=== PATIENT | female | born 1955 | race Caucasian/White ===

== ENCOUNTER → 2018-02-09 07:28 | Outpatient (CLI) | payer OTHER, SELFPAY ==
--- NOTE | 2018-02-09 07:29 | DI.MRI.S_ITS ---
PROCEDURE: MR KNEE LT WO CON INDICATIONS: 62 year-old female with left knee pain after injury 2 weeks ago. TECHNIQUE: Noncontrast sagittal PD fast spin echo and T2 fast spin echo with fat saturation, sagittal 3-D FLASH with fat saturation; coronal T1 spin echo and PD fast spin echo with fat saturation, and axial PD fast spin echo with fat saturation through the knee. COMPARISON: None. FINDINGS: Image quality: Excellent. Menisci: There is irregular signal within the medial meniscal body and posterior horn on sagittal image 8, coronal image 19, and axial image 20, consistent with complex tear with a vertical flap tear component on coronal image 18, a nondisplaced horizontal tear involves the lateral meniscal body as well. Meniscal root ligaments appear intact. Cruciate ligaments: The anterior and posterior cruciate ligaments appear intact. Medial structures: The medial collateral ligament appears intact, with superficial interstitial edema. The posterior oblique ligament, semimembranosus tendon insertions, oblique popliteal ligament, and meniscocapsular junction appear intact. Visualized portions of the pes anserinus tendons appear normal. There is bursal fluid between the superficial and deep layers of the medial collateral ligament, protruding anteriorly on axial image 19. Lateral structures: The lateral collateral ligament, long and short heads of the biceps femoris tendon appear intact. The popliteus tendon appears normal; the popliteofibular ligament appears intact. The posterosuperior and anteroinferior popliteomeniscal fascicles appear intact. The arcuate ligament appears intact, just anterior to the lateral inferior geniculate artery. Iliotibial band appears normal. Anterior structures: The quadriceps and patellar tendons appear intact. Patellar alignment is normal. No femoral trochlear dysplasia or ventral trochlear prominence. No edema in the infrapatellar fat pad. Bones and cartilage: 1.2 x 1.2 cm nondepressed subchondral insufficiency fracture involves the medial tibial plateau, with surrounding bone marrow edema. On coronal image 18, an additional 7 x 6 mm subchondral insufficiency fracture involves the weightbearing portion of the medial femoral condyle, with surrounding bone marrow edema. There is regional full-thickness cartilage loss involving the weightbearing portion of the medial femoral condyle. Lateral femorotibial compartment cartilage demonstrates normal thickness and signal, except for a small partial-thickness cartilage fissure on coronal image 20. There is localized full-thickness cartilage loss involving the patellar apex. Joint space: There is moderate knee joint effusion, and moderate unruptured Coleman's cyst. No intra-articular bodies. IMPRESSION: 1. Nondepressed subchondral insufficiency fractures of the medial femoral condyle and medial tibial plateau. 2. Complex tear of the medial meniscal body and posterior horn, with vertical flap tear component. 3. Nondisplaced horizontal tear of the lateral meniscal body. 4. Medial collateral ligament bursitis, as well as findings suggestive of grade 1 sprain. 5. Regional full-thickness degenerative chondrosis of the medial femoral condyle. Localized full-thickness chondrosis of the patellar apex. 6. Moderate knee joint effusion and moderate unruptured Coleman's cyst. Dictated by: Pedro Luis Jackson M.D. on 02/09/2018 at 8:40 Approved by: Pedro Luis Jackson M.D. on 02/09/2018 at 8:53
== END ==
PROVIDERS: Family Provider Family Medicine; PCP Family Medicine; Visit Provider Family Medicine
DX: M25.562 Pain in left knee (principal); M84.452A Pathological fracture, left femur, initial encounter for fracture; M84.462A Pathological fracture, left tibia, initial encounter for fracture; S83.242A Other tear of medial meniscus, current injury, left knee, initial encounter; S83.282A Other tear of lateral meniscus, current injury, left knee, initial encounter; M25.462 Effusion, left knee
CPT/HCPCS: 73721

== ENCOUNTER → 2018-05-24 07:03 | Outpatient (CLI) | payer MEDICARE, OTHER, SELFPAY ==
[2018-05-24 08:20] LABS: Add Manual Diff / Slide Review NO; Basophils Percent Auto 0.8 % (0-2); Eosinophils Percent Auto 2.9 % (2-4); Hematocrit 40.2 % (36-46); Hemoglobin 13.6 g/dL (12.0-16.0); Lymphocytes Percent Auto 9.6 % (25-40); Mean Corpuscular Hemoglobin 31.6 PG (26-34); Mean Corpuscular Volume 93.1 fL (80-100); Monocytes Percent Auto 8.2 % (3-14); Neutrophils Absolute Auto 4700 /uL (3000-5900); Neutrophils Percent Auto 78.5 % (50-75); Platelet Count 246 X10^3/uL (150-400); Red Blood Cell Count 4.31 X10^6/uL (4.0-5.2); Red Cell Distribution Width 12.8 % (11.6-14.8); White Blood Cell Count 5.9 X10^3/uL (4.5-11.0)
[2018-05-24 08:51] LABS: Alanine Aminotransferase 25 IU/L (9-52); Albumin 4.3 g/dL (3.5-5.0); Albumin Globulin Ratio 1.2 (1.0-2.8); Alkaline Phosphatase 64 U/L (38-126); Aspartate Aminotransferase 31 IU/L (14-36); Bilirubin Total 0.6 mg/dL (0.2-1.3); Blood Urea Nitrogen 18 mg/dL (7-17); Calcium 9.3 mg/dL (8.4-10.2); Carbon Dioxide 31 mmol/L (22-32); Chloride 100 mmol/L (98-107); Cholesterol 184 mg/dL (140-199); Estimated Glomerular Filt Rate > 60.0 mL/min (>60); Globulin 3.7 g/dL (1.7-4.1); Glucose 84 mg/dL (80-110); HDL Cholesterol 72 mg/dL (40-60); HEMOLYSIS < 15 (0-50); LDL Cholesterol Calculated 97 mg/dL (<100); Potassium 4.1 mmol/L (3.4-5.1); Sodium 142 mmol/L (137-145); Triglycerides 76 mg/dL (35-150)
== END ==
PROVIDERS: Family Provider Family Medicine; PCP Family Medicine; Visit Provider Physician Assistant
DX: L40.0 Psoriasis vulgaris (principal); E78.5 Hyperlipidemia, unspecified; I10 Essential (primary) hypertension
CPT/HCPCS: 36415; 80053; 80061; 84443; 85025

== ENCOUNTER → 2018-07-12 09:28 | Outpatient (CLI) | payer MEDICARE, OTHER, SELFPAY ==
--- NOTE | 2018-07-12 | DI.MG.S_ITS ---
BILATERAL DIGITAL SCREENING MAMMOGRAM 3D/2D WITH CAD: 07/12/2018 CLINICAL: Routine screening. Comparison is made to exams dated: 06/25/2017 mammogram, 06/24/2016 mammogram, and 12/23/2015 mammogram - [facility]. There are scattered fibroglandular elements in both breasts. Current study was also evaluated with a Computer Aided Detection (CAD) system. There is a benign biopsy clip in the right breast. No significant masses, calcifications, or other findings are seen in either breast. There has been no significant interval change. IMPRESSION: NEGATIVE There is no mammographic evidence of malignancy. A 1 year screening mammogram is recommended. NOTE: For mammograms, a report in lay terms will be sent to the patient. Approximately 15% of breast malignancies will not be visualized mammographically. In the management of a palpable breast mass, a negative mammogram must not discourage biopsy of a clinically suspicious lesion. Electronically Signed By: Marjorie ward/cortez:07/13/2018 12:07:50 letter sent: Normal Exam ACR BI-RADS Category 1: Negative 3341F
== END ==
PROVIDERS: Family Provider Family Medicine; PCP Family Medicine; Visit Provider Family Medicine
DX: Z12.31 Encounter for screening mammogram for malignant neoplasm of breast (principal)
CPT/HCPCS: 77063; 77067

== ENCOUNTER → 2019-07-14 10:48 | Outpatient (CLI) | payer MEDICARE, OTHER, SELFPAY ==
--- NOTE | 2019-07-14 | DI.MG.S_ITS ---
BILATERAL DIGITAL SCREENING MAMMOGRAM 3D/2D WITH CAD: 07/14/2019 CLINICAL: Routine screening. Comparison is made to exams dated: 07/12/2018 mammogram, 06/25/2017 mammogram, and 06/24/2016 mammogram - [facility]. There are scattered fibroglandular elements in both breasts. Current study was also evaluated with a Computer Aided Detection (CAD) system. There are benign calcifications in both breasts. There also is a biopsy clip in the right breast. No significant masses, calcifications, or other findings are seen in either breast. There has been no significant interval change. IMPRESSION: There is no mammographic evidence of malignancy. A 1 year screening mammogram is recommended. This exam was interpreted at Station ID: [id number]. NOTE: For mammograms, a report in lay terms will be sent to the patient. Approximately 15% of breast malignancies will not be visualized mammographically. In the management of a palpable breast mass, a negative mammogram must not discourage biopsy of a clinically suspicious lesion. Electronically Signed By: Kaz patel/cortez:07/14/2019 13:38:01 letter sent: Normal Exam ACR BI-RADS Category 2: Benign Finding(s) 3342F
== END ==
PROVIDERS: PCP Family Medicine; Visit Provider Family Medicine
DX: Z12.31 Encounter for screening mammogram for malignant neoplasm of breast (principal)
CPT/HCPCS: 77063; 77067

== ENCOUNTER → 2019-11-14 08:31 | Outpatient (CLI) | payer MEDICARE, OTHER, SELFPAY ==
[2019-11-14 11:14] LABS: Alanine Aminotransferase 16 IU/L (<35); Albumin 4.4 g/dL (3.5-5.0); Albumin Globulin Ratio 1.2 (1.0-2.8); Alkaline Phosphatase 66 U/L (38-126); Aspartate Aminotransferase 27 IU/L (14-36); BUN Creatinine Ratio 38.6 (6-22); Bilirubin Total 0.5 mg/dL (0.2-1.3); Blood Urea Nitrogen 22 mg/dL (7-17); Calcium 10.1 mg/dL (8.4-10.2); Carbon Dioxide 30 mmol/L (22-32); Chloride 99 mmol/L (98-107); Cholesterol 196 mg/dL (140-199); Estimated Glomerular Filt Rate > 60.0 mL/min (>60); Globulin 3.6 g/dL (1.7-4.1); Glucose 83 mg/dL (80-110); HDL Cholesterol 65 mg/dL (40-60); HEMOLYSIS < 15 (0-50); LDL Cholesterol Calculated 110 mg/dL (<100); Potassium 5.1 mmol/L (3.4-5.1); Sodium 135 mmol/L (137-145); Triglycerides 105 mg/dL (35-150)
== END ==
PROVIDERS: PCP Family Medicine; Referring Provider Family Medicine; Visit Provider Family Medicine
DX: Z13.1 Encounter for screening for diabetes mellitus (principal); E78.5 Hyperlipidemia, unspecified
CPT/HCPCS: 36415; 80053; 80061

== ENCOUNTER → 2019-11-14 09:07 | Outpatient (CLI) | payer MEDICARE, OTHER, SELFPAY | PROVIDERS: PCP Family Medicine; Referring Provider Family Medicine; Visit Provider Family Medicine | DX: M85.88 Other specified disorders of bone density and structure, other site (principal); Z78.0 Asymptomatic menopausal state; Z87.891 Personal history of nicotine dependence | CPT/HCPCS: 77080 ==

== ENCOUNTER → 2020-07-17 08:05 | Outpatient (CLI) | payer MEDICARE, OTHER, SELFPAY ==
--- NOTE | 2020-07-17 | DI.MG.S_ITS ---
BILATERAL DIGITAL SCREENING MAMMOGRAM 3D/2D WITH CAD: 07/17/2020 CLINICAL: Routine screening. Comparison is made to exams dated: 07/14/2019 mammogram, 07/12/2018 mammogram, and 06/25/2017 mammogram - [facility]. There are scattered fibroglandular elements in both breasts. Current study was also evaluated with a Computer Aided Detection (CAD) system. There are benign calcifications in both breasts. There also is a biopsy clip in the right breast. No significant masses, calcifications, or other findings are seen in either breast. There has been no significant interval change. IMPRESSION: BENIGN There is no mammographic evidence of malignancy. A 1 year screening mammogram is recommended. This exam was interpreted at Station ID: [id number]. NOTE: For mammograms, a report in lay terms will be sent to the patient. Approximately 15% of breast malignancies will not be visualized mammographically. In the management of a palpable breast mass, a negative mammogram must not discourage biopsy of a clinically suspicious lesion. Electronically Signed By: Kaz patel/cortez:07/17/2020 09:47:58 letter sent: Normal Exam ACR BI-RADS Category 2: Benign Finding(s) 3342F
== END ==
PROVIDERS: PCP Family Medicine; Referring Provider Family Medicine; Visit Provider Family Medicine
DX: Z12.31 Encounter for screening mammogram for malignant neoplasm of breast (principal)
CPT/HCPCS: 77063; 77067

== ENCOUNTER → 2020-09-24 06:50 | Outpatient (CLI) | payer MEDICARE, OTHER, SELFPAY ==
[2020-09-24 08:01] LABS: Alanine Aminotransferase 18 IU/L (<35); Albumin 4.5 g/dL (3.5-5.0); Albumin Globulin Ratio 1.2 (1.0-2.8); Alkaline Phosphatase 65 U/L (38-126); Aspartate Aminotransferase 30 IU/L (14-36); BUN Creatinine Ratio 44.6 (6-22); Bilirubin Total 0.6 mg/dL (0.2-1.3); Blood Urea Nitrogen 25 mg/dL (7-17); Calcium 9.6 mg/dL (8.4-10.2); Carbon Dioxide 33 mmol/L (22-32); Chloride 100 mmol/L (98-107); Cholesterol 227 mg/dL (140-199); Estimated Glomerular Filt Rate > 60.0 mL/min (>60); Globulin 3.7 g/dL (1.7-4.1); Glucose 86 mg/dL (80-110); HDL Cholesterol 80 mg/dL (40-60); HEMOLYSIS < 15 (0-50); LDL Cholesterol Calculated 119 mg/dL (<100); Potassium 5.1 mmol/L (3.4-5.1); Sodium 135 mmol/L (137-145); Total Protein 8.2 g/dL (6.3-8.2); Triglycerides 141 mg/dL (35-150)
== END ==
PROVIDERS: PCP Family Medicine; Referring Provider Family Medicine; Visit Provider Family Medicine
DX: E78.5 Hyperlipidemia, unspecified (principal); Z13.1 Encounter for screening for diabetes mellitus
CPT/HCPCS: 36415; 80053; 80061

== ENCOUNTER → 2020-11-29 09:21 | Outpatient (CLI) | payer MEDICARE, OTHER, SELFPAY ==
[2020-11-29 10:02] LABS: COVID19 -Nasal RAPID Negative (Negative)
== END ==
PROVIDERS: PCP Family Medicine; Visit Provider Surgery
DX: Z20.822 Contact with and (suspected) exposure to COVID-19 (principal)
CPT/HCPCS: 87635; C9803

== ENCOUNTER 2020-12-02 11:01 | Day surgery (SDC) | payer MEDICARE, OTHER, SELFPAY ==
--- NOTE | 2020-12-02 | PATH_ITS ---
[facility] Accession Number: [id number] . 01 Material submitted: . rectum - RECTAL POLYP @10CM . 02 Diagnosis: Rectal Polyp at 10 cm, Biopsy: Portions of hyperplastic polyp x2. MRV 12/05/2020 0932 Local . 02 Electronically signed: . Rosaura Lord MD, Pathologist NPI- [id number] . 01 Gross description: . RECTAL POLYP @10CM: Received in formalin are 2 fragment(s) of juares, soft tissue measuring 0.1 x 0.1 x 0.1 cm to 0.2 x 0.2 x 0.2 cm submitted entirely in 1 cassette(s) /HUMZA 12/03/2020 1909 Local . 02 Pathologist provided ICD-10: K63.5 . 02 CPT . 354230 Performed at: 01 [facility] [address] [id number] MD Jake Hurley MD Phone: [phone] Performed at: 02 [facility] [address] [place], [place] [id number] MD Marina Jacob MD Phone: [phone]
[2020-12-02 11:37] VITALS: BP 119/69; PULSE 80; RESP 18; TEMP 37; O2SAT 98; BMI 23.6
--- NOTE | 2020-12-02 11:41 | PM.HP.1 ---
History of Present Illness History of Present Illness Date Patient Seen: 12/02/20 Time Patient Seen: 11:41 Chief complaint: SCREENING COLONOSCOPY Narrative: This is a 65 yo woman with COPD on home O2, PTSD, and polyps on prior colonoscopies in 2014 and 2011. She is here for surveillance colonoscopy. She denies any new symptoms. Specifically denies melena, hematochezia, unexplained abdominal pain, unexplained weight loss. ROS: Thirteen system review is otherwise negative other than as mentioned below and in HPI. PE: GENERAL: Well groomed and cooperative. Appears stated age. Answers questions promptly and appropriately. Vital signs noted. HENT: Normocephalic, atraumatic. Hearing intact. EYES: Conjunctiva pink, sclera white, no periorbital swelling. CARDIOVASCULAR: Regular rate. No pedal edema. RESPIRATORY: Non-tachypneic, breathing comfortably on room air. GASTROINTESTINAL: Abdomen soft and non-distended GENITALURINARY: No flank tenderness. MUSCULOSKELETAL: Equal tone and mass bilaterally. SKIN: Warm, dry, soft, appropriate color for ethnicity. No other lesions, rashes, or wounds. NEURO: Alert and Oriented X 3. No gross sensory deficits, or cognitive issues. PSYCH: Appropriate affect and mood. Patient History Medical History (Updated 12/02/20 @ 11:46 by Xochitl Harvey MD) Abnormal Pap smear of cervix Anxiety (2006) Bacterial pneumonia (2014) Bipolar disorder (2006) Centrilobular emphysema (2007) Chicken pox (1954) Chronic back pain (2014) Colon polyps (2008) COPD (chronic obstructive pulmonary disease) (1999) Depression (2006) Fractures (2010) 3 para 3 Hyperlipidemia Hypertension Lung nodule Measles Mumps Other osteoporosis without current pathological fracture (03/12/17) RLS (restless legs syndrome) (2011) Scalp psoriasis (2014) Tendinitis involving left hip abductors Surgical History (Updated 02/21/18 @ 16:22 by Supriya Verdin) Anesthesia History of knee surgery (2014) History of vaginal surgery Status post right foot surgery (2004) Family & Social History Family History (Updated 02/21/18 @ 16:24 by Supriya Verdin) Father Heart disease Hypertension High cholesterol Mother Pneumonia Tobacco & Substance use: Smoking Status Former smoker Meds Home Medications and Allergies Home Medications Medication Instructions Recorded Confirmed Type albuterol sulfate [Ventolin HFA] 1 puff INH PRN PRN #0 02/11/17 12/02/20 History multivitamin [Multiple Vitamins] 1 tab PO DAILY #0 02/11/17 12/02/20 History magnesium oxide 400 mg PO DAILY #0 04/01/17 12/02/20 History omega 4-qmv-oes-fish oil [Fish Oil] 1,000 mg PO BID #0 04/01/17 12/02/20 History budesonide-formoterol HFA 160 2 puff INHALATION BID 02/03/18 12/02/20 History mcg-4.5 mcg/actuation aerosol inhaler tiotropium bromide 1 inh INHALATION DAILY 02/03/18 12/02/20 History montelukast 10 mg tablet 10 mg PO BEDTIME 07/17/19 12/02/20 [address]e [address] permit #1 ea 08/16/19 09/18/20 Rx clonazepam 0.5 mg tablet 0.5 mg PO BID PRN #180 tab 04/02/20 12/02/20 Rx trazodone 50 mg tablet 50 - 75 mg PO BEDTIME PRN #135 tab 04/02/20 09/18/20 Rx gabapentin 400 mg capsule 400 mg PO HS #90 cap 11/01/20 12/02/20 Rx lamotrigine 200 mg tablet 200 mg PO DAILY #90 tab NS MDD 11/01/20 12/02/20 Rx 200mg MDD gabapentin 100 mg PO BID 12/02/20 12/02/20 History Allergies Allergy/AdvReac Type Severity Reaction Status Date / Time Sulfa (Sulfonamide Allergy Severe CONVULSIONS Verified 12/02/20 11:32 Antibiotics) [SULFA (SULFONAMIDE ANTIBIOTICS)] latex [LATEX] Allergy Mild RASH Verified 12/02/20 11:32 Assessment & Plan Assessment and plan (1) COPD (chronic obstructive pulmonary disease) with emphysema: Status: Acute (2) Chronic respiratory failure: Status: Chronic (3) Posttraumatic stress disorder: Status: None (4) History of colon polyps: Status: Acute Assessment & Plan narrative: Due to her history of COPD and PTSD, the patient is not a good candidate for colonoscopy under procedural sedation. She is at high risk for intolerance of sedation with Versed and fentanyl alone, due to her PTSD. She is at high risk for respiratory deterioration during the procedure due to her COPD and oxygen dependence. We have consulted our anesthesiologist, Dr. Elliott, to provide monitored anesthesia care for this high risk patient. Risks and benefits of screening colonoscopy and possible polypectomy were discussed with the patient including risk of bleeding, perforation, need for additional procedures, risks of anesthesia. The patient desires to proceed with the colonoscopy procedure. COVID-19 COVID-19 status: Negative Result date/Date tested (Pos, Neg/Pending): 11/29/20 Time Spent With Patient Time with patient: 15-24 minutes Quality VTE Deep Vein Thrombosis/Pulmonary Embolism Present on Admission: No
[2020-12-02] MEDS: LACTATED RINGERS 1,000 ML 42 ML IV (11:51)
--- NOTE | 2020-12-02 11:58 | PM.OP.ENDO ---
Operative Date/Time/Diagnoses Date of procedure: 12/02/20 Time of procedure: 11:58 Pre-op diagnosis: Personal history of colon polyps, COPD on home O2, PTSD Post-op diagnosis: other (Extremely tortuous colon, single rectal polyp) Procedure & Clinicians Study performed: Colonoscopy Polypectomy which Jumbo forceps Same procedure as scheduled: Yes Indications: Personal history of colon polyps. Due to pt's COPD on home O2 and PTSD she is at high risk for respiratory complications and for intolerance of the procedure with conscious sedation. Therefore we have consulted Dr. Elliott from Anesthesiology to provide MAC sedation for the procedure. Surgeon: Xochitl Harvey Procedure Notes SCOAP/Timeout: Performed Procedure in detail: The patient was brought to the room and placed in left lateral decubitus position with all bony prominences padded. Once adequately sedated, the procedure was begun. A rectal exam was performed revealing no abnormalities. The colonoscope was then introduced to the rectum and advanced to the cecum. The colon was extremely tortuous, and required a prolonged procedure, and multiple maneuvers such as using the stiffener, and placing abdominal pressure in 4 quadrants in order to reach the cecum safely. ]The cecum was identified by the appendiceal orifice, the mucosal tri-fold, and the ileocecal valve. The scope was then retracted while rotating side to side and examining each mucosal fold. A small rectal polyp was found at 15 cm in the rectum, and removed with Jumbo forceps. At the conclusion of the procedure retroflexion was performed and small grade 1-2 internal hemorrhoids without stigmata of bleeding were seen. The scope was then withdrawn from the rectum the procedure was concluded. The patient tolerated the procedure well and was transferred to the PACU in stable condition. Scope withdrawal time: 10 Findings: polyp and other findings (Extremely tortuous colon) Specimen(s): other (Rectal polyp) Complications: none Impression: Single rectal polyp, benign appeared Post-procedure Recommendations: Colonscopy in 5 years (Due to extensive personal history of colon polyps) Follow up: as needed Disposition: PACU
[2020-12-02 12:50] VITALS: BP 131/61; PULSE 76; RESP 20; O2SAT 97
[2020-12-02 12:56] VITALS: BP 131/69; PULSE 76; RESP 16; TEMP 36.5; O2SAT 97
--- NOTE | 2020-12-02 12:59 | SUR.PHASEI ---
Stable Pacu stay
[2020-12-02 13:01] VITALS: BP 120/64; PULSE 76; RESP 19; TEMP 36.6; O2SAT 98
[2020-12-02 13:08] VITALS: BP 118/58; PULSE 78; RESP 20; TEMP 36.7; O2SAT 98
[2020-12-02 13:28] VITALS: BP 121/61; PULSE 79; RESP 20; TEMP 36.7; O2SAT 99
--- NOTE | 2020-12-02 13:31 | SUR.PHASEII ---
Pt ready to go, ride called, belly soft tolerating po fluids. Left unit in stable condition.
== END 2020-12-02 13:32 | disposition home or self-care (01) ==
PROVIDERS: PCP Family Medicine; Referring Provider Surgery; Visit Provider Surgery
PROC: 0DJD8ZZ Inspection of Lower Intestinal Tract, Via Natural or Artificial Opening Endoscopic (ICD-10-PCS; CPT 45378; principal; 2020-12-02 12:15)
DX: Z12.11 Encounter for screening for malignant neoplasm of colon (principal); Z86.010 Personal history of colon polyps; J44.9 Chronic obstructive pulmonary disease, unspecified; Z99.81 Dependence on supplemental oxygen; K64.0 First degree hemorrhoids; F43.10 Post-traumatic stress disorder, unspecified
CPT/HCPCS: G0105

== ENCOUNTER → 2021-08-13 15:22 | Outpatient (CLI) | payer MEDICARE, OTHER, SELFPAY ==
--- NOTE | 2021-08-13 15:24 | DI.MG.S_ITS ---
BILATERAL DIGITAL SCREENING MAMMOGRAM 3D/2D WITH CAD: 08/13/2021 CLINICAL: Routine screening. Comparison is made to exams dated: 07/14/2019 mammogram, 07/12/2018 mammogram, 06/25/2017 mammogram, and 07/17/2020 mammogram - [facility]. There are scattered fibroglandular elements in both breasts. Current study was also evaluated with a Computer Aided Detection (CAD) system. There are benign calcifications in both breasts. There also is a biopsy clip in the right breast. No significant masses, calcifications, or other findings are seen in either breast. There has been no significant interval change. IMPRESSION: BENIGN There is no mammographic evidence of malignancy. A 1 year screening mammogram is recommended. This exam was interpreted at Station ID: [id number]. NOTE: For mammograms, a report in lay terms will be sent to the patient. Approximately 15% of breast malignancies will not be visualized mammographically. In the management of a palpable breast mass, a negative mammogram must not discourage biopsy of a clinically suspicious lesion. Electronically Signed By: Akil Centeno M.D., jr/cortez:08/13/2021 16:13:59 letter sent: Normal Exam ACR BI-RADS Category 2: Benign Finding(s) 3342F
== END ==
PROVIDERS: PCP Family Medicine; Referring Provider Family Medicine; Visit Provider Family Medicine
DX: Z12.31 Encounter for screening mammogram for malignant neoplasm of breast (principal)
CPT/HCPCS: 77063; 77067

== ENCOUNTER → 2021-10-23 06:55 | Outpatient (CLI) | payer MEDICARE, OTHER, SELFPAY ==
[2021-10-23 09:26] LABS: Add Manual Diff / Slide Review NO; Basophils Absolute Auto 100 /uL (0-100); Basophils Percent Auto 1.5 % (0-2); Eosinophils Absolute Auto 200 /uL (0-450); Eosinophils Percent Auto 3.9 % (2-4); Hematocrit 39.1 % (36-46); Hemoglobin 13.1 g/dL (12.0-16.0); Lymphocytes Absolute Auto 1400 /uL (1100-4500); Lymphocytes Percent Auto 32.4 % (25-40); Mean Corpuscular HGB Conc 33.4 % (30-36); Mean Corpuscular Hemoglobin 31.6 PG (26-34); Mean Corpuscular Volume 94.6 fL (80-100); Monocytes Absolute Auto 500 /uL (0-900); Monocytes Percent Auto 12.8 % (3-14); Neutrophils Absolute Auto 2100 /uL (1500-7000); Neutrophils Percent Auto 49.4 % (50-75); Platelet Count 283 X10^3/uL (150-400); Red Blood Cell Count 4.13 X10^6/uL (4.0-5.2); Red Cell Distribution Width 13.6 % (11.6-14.8); White Blood Cell Count 4.2 X10^3/uL (4.5-11.0)
[2021-10-23 09:36] LABS: Alanine Aminotransferase 19 IU/L (<35); Albumin 4.3 g/dL (3.5-5.0); Albumin Globulin Ratio 1.2 (1.0-2.8); Alkaline Phosphatase 47 U/L (38-126); Aspartate Aminotransferase 37 IU/L (14-36); BUN Creatinine Ratio 32.2 (6-22); Bilirubin Total 0.7 mg/dL (0.2-1.3); Blood Urea Nitrogen 19 mg/dL (7-17); Calcium 9.4 mg/dL (8.4-10.2); Carbon Dioxide 35 mmol/L (22-32); Chloride 100 mmol/L (98-107); Cholesterol 222 mg/dL (140-199); Estimated Glomerular Filt Rate > 60.0 mL/min (>60); Globulin 3.7 g/dL (1.7-4.1); Glucose 72 mg/dL (80-110); HDL Cholesterol 96 mg/dL (40-60); HEMOLYSIS < 15 (0-50); LDL Cholesterol Calculated 110 mg/dL (<100); Potassium 4.2 mmol/L (3.4-5.1); Sodium 136 mmol/L (137-145); Triglycerides 78 mg/dL (35-150)
== END ==
PROVIDERS: PCP Family Medicine; Referring Provider Family Medicine; Visit Provider Family Medicine
DX: E78.5 Hyperlipidemia, unspecified (principal); I10 Essential (primary) hypertension
CPT/HCPCS: 36415; 80053; 80061; 85025

== ENCOUNTER 2024-11-09 14:06 | Inpatient (IN) | payer MEDICARE, OTHER, SELFPAY ==
[2024-11-01 12:33] VITALS: BMI 25.4
[2024-11-08] VITALS (14 sets, daily range): BP systolic 91–118; BP diastolic 44–70; PULSE 67–81; RESP 12–20; TEMP 35.9–36.4; O2SAT 90–99; BMI 24.7; BMI 26.4
--- NOTE | 2024-11-08 06:00 | DI.RAD.S_ITS ---
PROCEDURE: XR KNEE RT 1TO2V INDICATIONS: TKA TECHNIQUE: 2 view(s) of the knee acquired. COMPARISON: None. FINDINGS: Bones: Patient is status post knee joint arthroplasty. Hardware components are in expected positions. Visualized bony structures are intact. Soft tissues: Overlying postoperative changes are noted. IMPRESSION: Expected post-operative appearance of a knee arthroplasty. Dictated by: Parrish Medina M.D. on 11/08/2024 at 15:13 Approved by: Parrish Medina M.D. on 11/08/2024 at 15:13
[2024-11-08] MEDS: ACETAMINOPHEN 325 MG TABLET 975 MG PO (09:32)
[2024-11-08] MEDS: CELECOXIB 200 MG CAPSULE PO (09:34)
[2024-11-08] MEDS: LACTATED RINGERS 1,000 ML 42 ML IV ×2 (09:35→13:37)
--- NOTE | 2024-11-08 09:38 | SUR.PREOP ---
Amanda order from Graciela DINERO for pre-op via telephone order.
[2024-11-08] MEDS: ALBUTEROL/IPRATROPIUM 3 ML AMPUL INH ×3 (10:00→19:53)
--- NOTE | 2024-11-08 11:06 | PM.PREOP ---
Pre-operative Note Interval Note History & Physical reviewed/Exam performed by Physician: Yes Changes to H&P: No
--- NOTE | 2024-11-08 11:18 | PM.OP.1 ---
Operative Date/Time/Diagnoses Date of procedure: 11/08/24 Time of procedure: 12:00 Pre-op diagnosis: Right knee arthritis Post-op diagnosis: same Procedure & Clinicians Procedure: Right knee replacement CPT code 40425 Robotic assisted knee replacement [id number] Computer navigation assisted surgery [id number] Same procedure as scheduled: Yes Indications: The patient has significant pain associated with osteoarthritis of the right knee. It is associated with morning stiffness. Pain interferes with daily normal function including ambulation standing and any activities that are weight-bearing. It interferes with sleep. There is crepitation with range of motion. There is marked joint line tenderness. X-rays show significant levels of osteoarthritis. attempted previous conservative treatment has been rendered. The patient has failed exercise program, medications and previous injections. Patient is indicated for total knee arthroplasty. The risks and benefits of the procedure have been discussed with the patient and given the opportunity to ask questions. The risks of surgery include but are not limited to infection, malunion, nonunion, persistence of pain, damage to nerves and blood vessels, posttraumatic arthritis, DVT, PE, cardiopulmonary complications and . The patient expressed a thorough understanding of the risks and benefits of surgery and has elected to proceed. Consent was signed. During the operation, the services of a physician surgical services manager were medically indicated and necessary to provide the exposure of the operative site for the surgical procedure and to maintain the limb in a proper position to carry out the operation safely and efficiently. Without a qualified physiotherapy assistant being present this would extended the operative procedure and made the procedure technically more difficult to perform. Surgeon: Maryam Harper Social Worker Palliative Care: Krishan Jacobson Click Yes if Unassisted: Yes Anesthesia Type: General, Spinal, Peripheral nerve block and Local Operative Notes Findings: Full-thickness cartilage loss, knee arthritis right knee Closure Type: primary Specimen(s): none sent Prosthetic devices, grafts, tissues, transplants, or devices: Franks and nephew journey 2 bCS Femur cobalt chromium5 Tibia4 Patella 35x7.5 Poly 9mm Estimated Blood Loss (mL): 50 Blood products transfused: none Tourniquet time (min): 71 Procedure in detail: Patient was seen in the preoperative area where the patient and site of surgery were identified in the operative knee was marked informed consent confirmed. This was the right knee. Patient received the appropriate preoperative antibiotics this was 2 g of Ancef. And other preoperative medications and was taken to the operating room placed on operating table in the supine position. Spinal anesthetic were administered. The operative extremity was then prepped and draped in the standard sterile fashion with a nonsterile tourniquet high on the thigh. Patient was placed on the green foam bolsters. A lateral post was placed at the level of the proximal thigh /trochanter area as a lateral post. Formal time-out procedure was performed confirming the patient's side and site of surgery and administration of appropriate preoperative antibiotics and implants were in the room accounted for. All were in agreement. Patient received a preoperative dose of tranexamic acid and then a 2nd dose at tourniquet release Patient was prepped and draped in the standard sterile fashion and the foot was placed into the leg eckert. This was taken into high flexion and the incision was marked out over the anterior knee to the level of the medial tubercle tubercle. The Esmarch was then used for exsanguination and the tourniquet was inflated to 250 mmHg. Was made through the skin and subcutaneous tissue in high flexion this was then brought down into 30? of flexion for the medial parapatellar arthrotomy. A marker pen was used to laura the arthrotomy site for later repair. Joint fluid was evacuated. The anterior osteophytes and soft tissues were removed. Routine medial release was initially made along the medial proximal tibia with Bovie. The patella was 1st cut using the saw sized and prepped and then subluxed throughout the case and protected. The leg was then taken into extension and the patella was everted and the patella was cut to accommodate the patellar button. This was sized to a 35 mm button for a 7.5 mm thickness to recreate the original dimensions of the patella. Poly was removed and the protector replaced and the patella was subluxed and the knee was taken back up into flexion and attention was returned to the femur. Then the rotational landmarks of Whitesides line and the trans epicondylar axis were marked on the femur with electrocautery. ACL and PCL were released. Then the Cori robotic pins were placed into the femur and tibia and the race set up. Landmarks were established and the robotic planning was commenced. Plan was developed and improved and adjusted as necessary to create a balanced knee. Alignment was at the correct to neutral. Knee was balanced 1-2 mm in flexion extension by placing 5? external rotation distal femur 3? flexion 3? of tibial slope. Plan was satisfactory the bur was used to remove the distal femur then the 5 in 1 cutting block was applied complete the femur cuts. Attention was then turned to the tibia and the tibial resection was made in accordance with the robotic planning. The trials were placed. And the femoral notch was cut a standard fashion using Reamer then slap hammer. The knee was trialed and the checked. Knee was balanced in flexion extension. Range of motion 0-135 degrees was obtained. The rotation femoral trial was marked Bovie on the bone and checked with a long robbie. The tibia was then finished with a drill and flange cut and then The trial implants were removed. Then in extension the posterior capsule was injected with a mixture of 40 mL of 0.25% Marcaine and 20 mL of Exparel care to avoid excessive injection posterior laterally. The remainder of this was saved for the capsule and subcutaneous tissue and placed during cement curing. The wound and bone was irrigated with pulsatile lavage. This was then dried with a sponge. The components were verified and opened and the cement was mixed. Cement was applied to the components and then to the bone then the tibia was cemented in place 1st followed by the femur then the patella. Excess cement was removed. With care looking around the back of the knee. Remainder of the injection was injected around the capsule. trial poly was placed back in the leg was placed into extension for the patellar cementing. After this was cured approximately 15 minutes later and the dilute Betadine solution was placed for at least 3 minutes in the wound this was then irrigated out and the final poly was placed. This was a 9mm poly. The tourniquet was released hemostasis was achieved. Final 1g of tranexamic acid was given IV at the time of tourniquet release. The capsule was closed with 1. Ethibond suture. Followed by a running Quill stitch. Subcutaneous layer was closed with 3-0 Vicryl suture. Skin was closed with a running V lock suture Stratafix Monocryl type suture and Dermabond. An Aquacel dressing was placed . An Trey wrap was applied. Anesthetic was terminated the patient was woken from anesthesia and taken to recovery room in good condition. There no immediate complications from this procedure. The patient will be maintained on a standard total knee replacement protocol with weight-bearing as tolerated. Complications: none Post-operative Condition: stable Disposition: PACU Plan for aftercare: Normal total knee postop protocol. Full weight-bearing immediate knee range of motion. Commence physical therapy within 1 week. Follow up in Orthopedic Clinic in 2 weeks for wound check. Aspirin 81 mg b.i.d. x6 weeks for DVT prophylaxis. May shower with the Aquacel dressing. No soaking of incision.
[2024-11-08] MEDS: CEFAZOLIN 2 GM/100 ML PREMIX 100 ML IV ×2 (12:09→20:30)
[2024-11-08] MEDS: TRANEXAMIC ACID 1,000 MG VIAL 1000 MG INJ ×2 (12:11→13:33)
--- NOTE | 2024-11-08 12:30 | SUR.OPER ---
Supine on padded OR bed. Pillow under head, arms secured on padded armboards <90 degree abduction. Safety belt across torso. Non-operative leg secured with tape over blanket over lower leg. Operative leg secured in DeMayo positioner. Foam padded brace at thigh of operative leg.
[2024-11-08] MEDS: BUPIVACAINE 0.25% W/ EPI 30 ML VIAL 60 ML INJ (12:38)
[2024-11-08] MEDS: BUPIVACAINE LIPOSOME 266 MG/20 ML VIAL INJ (13:22)
[2024-11-08] MEDS: ACETAMINOPHEN 325 MG TABLET 650 MG PO (17:37)
[2024-11-08] MEDS: OXYCODONE IR 5 MG TABLET PO ×2 (19:02→22:18)
[2024-11-08] MEDS: BUDESONIDE 0.5 MG/2 ML NEB INH (19:54)
[2024-11-08] MEDS: LACTATED RINGERS 1,000 ML 100 ML IV (20:30)
[2024-11-08] MEDS: lamoTRIgine 100 MG TABLET 200 MG PO (20:31)
[2024-11-08] MEDS: IBUPROFEN 600 MG TABLET PO (20:31)
[2024-11-08] MEDS: MONTELUKAST 10 MG TABLET PO (20:32)
[2024-11-08] MEDS: ASPIRIN EC 81 MG TABLET PO (20:32)
[2024-11-08] MEDS: DOCUSATE 100 MG CAPSULE PO (20:32)
[2024-11-08] MEDS: TRAZODONE 50 MG TABLET 100 MG PO (20:32)
[2024-11-09] MEDS: ACETAMINOPHEN 325 MG TABLET 650 MG PO ×2 (04:26→10:10)
[2024-11-09] MEDS: CEFAZOLIN 2 GM/100 ML PREMIX 100 ML IV (04:29)
[2024-11-09 05:41] LABS: Hematocrit 28.8 % (36-46); Hemoglobin 9.6 g/dL (12.0-16.0)
[2024-11-09] MEDS: ALBUTEROL/IPRATROPIUM 3 ML AMPUL INH ×3 (07:47→19:35)
[2024-11-09] MEDS: BUDESONIDE 0.5 MG/2 ML NEB INH ×2 (07:47→19:35)
[2024-11-09 07:48] VITALS: PULSE 77; RESP 18; O2SAT 92
[2024-11-09 08:00] VITALS: BP 108/60; PULSE 77; RESP 18; TEMP 36.5; O2SAT 92
--- NOTE | 2024-11-09 08:13 | P.DS_ITS ---
History of Present Illness History of Present Illness Date Patient Seen: 11/09/24 Time Patient Seen: 08:13 Chief complaint: R TKA *OPB* Narrative: The patient has significant pain associated with osteoarthritis of the right knee. It is associated with morning stiffness. Pain interferes with daily normal function including ambulation standing and any activities that are weight-bearing. It interferes with sleep. There is crepitation with range of motion. There is marked joint line tenderness. X-rays show significant levels of osteoarthritis. attempted previous conservative treatment has been rendered. The patient has failed exercise program, medications and previous injections. Patient is indicated for total knee arthroplasty. Discharge Providers Provider Discharge Date: 11/09/24 Primary care physician: Camille Lopez DO Consults: 11/01/24 13:36 Consult to Anesthesiology Routine Comment: Consulting Provider: Anesthesiologist Reason for consultation: Surgeon request for COPD. 11/08/24 06:00 Consult to Anesthesiology Routine Comment: Consulting Provider: Anesthesiologist Reason for consultation: Regional block for post operative pain control 11/08/24 14:35 Consult to Discharge Planning Routine Comment: Consult to Occupational Therapy Evaluate & Treat Comment: Physician Instructions: Evaluate and treat Consult to Physical Therapy Evaluate & Treat Comment: Physician Instructions: postop TKA protocol Discharge provider: Krishan Jacobson PA-C Summary Hospital Course Discharge Diagnosis: Right knee arthritis Status at Discharge Cognitive/behavioral status at discharge: oriented Functional status at discharge: uses cane/walker Overall status at discharge: patient is back to baseline Time Spent with Patient Time spent: Less than 30 minutes Exam Vital Signs (past 8 hours): - 11/09/24 07:48 11/09/24 08:00 Temperature 97.7 F Pulse Rate 77 77 Respiratory Rate 18 18 Blood Pressure 108/60 Pulse Oximetry 92 92 Oxygen Delivery Method Room Air Oxygen Flow Rate 0 0 Fraction of Inspired Oxygen 21 Fraction of Inspired Oxygen 21 SaO2/FiO2 Ratio 438 Oxygen Delivery Method Room Air Oxygen Flow Rate 0 Narrative Exam Narrative: Patient's pain is controlled with oral medication. ?Pain is localized to surgical site. ?Patient declines any new numbness or tingling at the surgical extremity. ?Patient denies any shortness of breath, dizziness, light-headedness, nausea, vomiting, fever or chills. 5/5 strength in hip flexors, quadriceps, hamstrings, DF, PF, EHL bilaterally. Sensation to light touch intact throughout BLE. Calves soft, compressible, nontender. Dressing placed intraoperatively CDI. Objective Labs 11/09/24 05:01 Labs: Laboratory Results - last 24 hr 11/09/24 05:01 Hgb 9.6 L Hct 28.8 L PFSH Medical History (Updated 11/01/24 @ 13:00 by Vanessa Turner, RN) Depression Mild cognitive impairment Tendinitis involving left hip abductors Lung nodule Hypertension Fractures (2010) Scalp psoriasis (2014) Colon polyps (2008) Bipolar disorder (2006) Chicken pox (1954) Hyperlipidemia Measles Mumps RLS (restless legs syndrome) (2011) Chronic back pain (2014) 3 para 3 Abnormal Pap smear of cervix Bacterial pneumonia (2014) Centrilobular emphysema (2007) COPD (chronic obstructive pulmonary disease) (1999) Other osteoporosis without current pathological fracture (03/12/17) Anxiety (2006) Surgical History (Updated 11/01/24 @ 13:56 by Vanessa Turner RN) History of cataract extraction (2023) Anesthesia History of vaginal surgery History of knee surgery (2014) Status post right foot surgery (2004) Family History (Updated 02/21/18 @ 16:24 by Supriya Verdin) Father Heart disease Hypertension High cholesterol Mother Pneumonia Social History household members: significant other Smoking Status: Former smoker alcohol intake: current Discharge Assessment & Plan Assessment and Plan Assessment: Status post right knee total arthroplasty Plan of Treatment: Discharge to home. ? Ambulate and weight bear as tolerated with assistive devices. ? Aspirin 81 mg twice a day for 6 weeks for DVT prevention. ? You also have prescriptions diclofenac for least the 1st 10 days after surgery to help with pain control. Use as prescribed. And acetaminophen (Tylenol) take 500-1000 mg 3 times a day for pain control. Oxycodone 5 mg q.4 hours PRN for breakthrough pain. ? Initiate outpatient physical therapy in the next 5-10 days. ? Keep dressing clean and dry. Keep dressing on until first office visit. If dressing becomes dirty or disrupted, replace with appropriate sized dressing. Follow up in clinic in 2 weeks for wound check. Contact clinic if there are any questions or concerns. Discharge Plan Discharge Plan Patient Disposition: Home Provider Discharge Comment: DC pending PT approval Discharge orders & Medications Discharge Orders: Discharge (Order); Ordered 11/09/24 Ordered By: Krishan Jacobson Prescriptions: New aspirin 81 mg Tablet,Delayed Release (Dr/Ec) 81 mg PO BID Qty: 90 0RF Continued vilazodone 40 mg tablet 40 mg PO DAILY Qty: 90 3RF Rx Instructions: must administer with a meal/food clonazepam 0.5 mg tablet 0.5 mg PO BID MDD 1mg PRN (Reason: anxiety) Qty: 180 1RF multivitamin [Multiple Vitamins] 1 EACH tablet 1 tab PO DAILY Qty: 0 montelukast 10 mg tablet 10 mg PO BEDTIME Qty: 90 3RF trazodone 50 mg tablet 100 mg PO BEDTIME PRN (Reason: insomnia) Qty: 180 0RF Breztri Aerosphere 160-9-4.8 mcg/actuation HFA aerosol inhaler 2 inh INHALATION BID Patient Comments: [NO ORIGINAL SIG] amlodipine 5 mg tablet 5 mg PO DAILY lamotrigine 200 mg tablet 200 mg PO BEDTIME MDD 200mg MDD Combivent Respimat 20-100 mcg/actuation mist 1 puff inhalation PRN PRN (Reason: SOB.) acetaminophen [Tylenol Extra Strength] 500 mg Tablet 1,000 mg PO BID PRN (Reason: Pain (Scale Score 4-6)) rosuvastatin 5 mg tablet 5 mg PO DAILY calcipotriene 0.005 % solution 1 applic topical DAILY Rx Instructions: rub in gently and completely diclofenac sodium 75 mg tablet,delayed release (DR/EC) 75 mg PO BID clobetasol 0.05 % solution 1 applic topical DAILY (DME) disabled Parking Pass See Rx Instructions .Route .MEDSUPPLY Qty: 1 0RF Rx Instructions: As directed Follow up/Referrals: Camille Lopez DO [Primary Care Provider] - Diet/Activity/Treatments Diet: Diet as Tolerated Skin/Wound/Dressing Care Report to your healthcare provider any signs of infection, such as:: chills, fever, night sweats, increased pain, unusual drainage and unusual redness Other wound treatment: Dressing/Wound care: -Remove the Trey wrap 48 hours after surgery. -Keep Aquacell dressing in place until postoperative follow-up office visit. -you may see some drainage on the bandage, this is ok. If it is leaking or saturated, then the dressing can be changed to clean gauze or a clean surgical dressing from a pharmacy or reinforced with additional gauze and paper tape or dressings over the top. Otherwise, just keep dressing in place until follow up. -Okay to shower. Keep wound out of direct water stream. No soaking or submerging until all the scabs fall off (approximately 6 weeks). -Please call the office if dressing becomes significantly wet, soiled, or saturated. Activities: -Weight-bearing as tolerated. Use front wheeled walker, and progress to cane when safe. -Continue with home exercises as directed by your physical therapist. -Elevate ?toes above the nose if you have significant swelling in your lower leg. (A wedge pillow is easiest.) -Ice your incision as needed for pain/inflammation/swelling. Protect your skin with a folded pillowcase. Follow-up: -Follow-up with your surgeon or PA in the office in 10-14 days after surgery. -Follow-up with your surgeon 6 weeks postoperatively. Call the office if you have chest pain, shortness of breath, significant swelling that will not resolve with elevating, fever over 101?, significantly worsening pain. [facility]: [phone] You have been discharged with medications. These have already been sent to your pharmacy. Pain include pain medications: Oxycodone take 5 mg orally every 4 hours as needed for pain. If your pain is more severe you may take up to 2 or a maximum 3 pills (15 mg) every 4 hours for pain. Take the smallest dose necessary. Narcotic medication can make you feel constipated. You can get uryd-yze-tbmjrvs stool softener such as docusate sodium-Colace at a pharmacy to help with this. You also have prescriptions diclofenac for least the 1st 10 days after surgery to help with pain control. Use as prescribed. And acetaminophen (Tylenol) take 500-1000 mg 3 times a day for pain control. You also have a prescription for Zofran (ondansetron) this is a strong anti nausea medication that can be taken up to every 8 hours as needed for nausea Additionally will take a baby aspirin 81 mg twice a day (morning and night) to help prevent blood clots If you have been discharged with ketorolac (toradol) this is a strong anti- inflammatory, do not take ibuprofen/meloxicam/mortin or other NSAIDS while on ketorolac. Once your ketorolac prescription is finished, you may restart taking other NSAIDs again. narcotic pain medication, tylenol and aspirin are fine to continue while on ketorolac. Visit Report/Discharge Packet Instructions: DI for Knee Replacement, DI for Prescription Opioid Use Stand Alone Forms: Patient Portal/API, Surgery Discharge Discharge Data Primary Care Provider: Camille Lopez Attending Provider: Maryam Harper VTE Deep Vein Thrombosis/Pulmonary Embolism Present on Admission: No
--- NOTE | 2024-11-09 08:24 | PC.NURSE ---
Addendum entered by Daly Day R.N. 11/09/24 14:31: Patient is not going to go home today, she is not moving well with pt and when she gets up her blood pressure is going down to the 100s/30s and 100s/40s. She has not passed out but she gets nauseated. She is resting in bed now and taking oxycodone for pain and discomfort. Original Note: Patient is alert and oriented this morning. She will be given oxycodone prior to working with physical therapy. Dressing to r.knee is aquacel and brigitte wrap. PA has asked us to hold patients amlodipine this morning. She is eating breakfast now.
[2024-11-09] MEDS: DOCUSATE 100 MG CAPSULE PO ×2 (08:33→20:20)
[2024-11-09] MEDS: OXYCODONE IR 5 MG TABLET PO ×3 (08:33→16:10)
[2024-11-09] MEDS: ASPIRIN EC 81 MG TABLET PO ×2 (08:33→20:20)
--- NOTE | 2024-11-09 09:57 | PT.IIE ---
Current Diagnoses Unilateral primary osteoarthritis, left knee (11/08/24) Surgery Performed Operation Date: 11/08/24 10:45 Actual Procedures p Total Knee Arthroplasty - Robot(Right) - Maryam Harper MD Surgical History (Last Updated 11/01/24 @ 13:56 by Vanessa Turner, RN) Anesthesia History of cataract extraction (2023) History of knee surgery (2014) History of vaginal surgery Status post right foot surgery (2004) Medical History (Last Updated 11/01/24 @ 13:00 by Vanessa Turner, RN) Abnormal Pap smear of cervix Anxiety (2006) Bacterial pneumonia (2014) Bipolar disorder (2006) Centrilobular emphysema (2007) Chicken pox (1954) Chronic back pain (2014) Colon polyps (2008) COPD (chronic obstructive pulmonary disease) (1999) Depression Fractures (2010) 3 para 3 Hyperlipidemia Hypertension Lung nodule Measles Mild cognitive impairment Mumps Other osteoporosis without current pathological fracture (03/12/17) RLS (restless legs syndrome) (2011) Scalp psoriasis (2014) Tendinitis involving left hip abductors Physical Therapy Inpatient Evaluation/Re-Eval M1 PT/OT-IP Prior Functional Status Start: 11/09/24 08:35 Freq: NEEDED Status: Active Protocol: Document 11/09/24 09:57 DLM (Rec: 11/09/24 11:45 DL [id number]) Medical Review Prior Functional Status Medical History Reviewed Yes Diet/Fluid Consistency Regular Communication WNL Mobility and Gait Independent without device, community distances Activities of Daily Living and IADL's Independent Social History Household Members significant other Living Arrangements House Number of Floors (Floors) One Floor Number of Stairs To Enter/Railing? one step to enter with one rail Home Environment Standard Height Toilet,Walk in Shower,Tub/Shower,Tub/Shower Doors Home Equipment Front Wheel Walker,Four Wheel Walker,Straight Cane,Raised Toilet Seat w/Armrests,Shower Seat without Backrest Employment Status Retired Additional Social History Comment attended out-pt PT before surgery M2 PT-IP Current Condition Start: 11/09/24 08:35 Freq: NEEDED Status: Active Protocol: Document 11/09/24 09:57 DLM (Rec: 11/09/24 11:45 DL [id number]) Physical Therapy Current Condition Current Condition Evaluation Date 11/09/24 Treatment Diagnosis right total knee arthroplasty, impaired gait Onset Date 11/08/24 M3 PT-IP Subjective Start: 11/09/24 08:35 Freq: NEEDED Status: Active Protocol: Document 11/09/24 09:57 DLM (Rec: 11/09/24 11:45 DLM [id number]) Subjective Physical Therapy Visit Type Type Initial Evaluation Visit Start Time 09:00 Visit Stop Time 09:57 Notes 57 minutes Number of FINANCE ADMINISTRATOR Visits 0 Physical Therapy Visit Comments Patient Comments She has pain in her knee with moving, needs help getting leg on/off bed. Her Boyfriend plans to help her at home. She has out-pt PT scheduled for and 11/16/24. Patient Goals Discharge home Therapy Pain Assessment Pain When Pain Assessed After Treatment Pain Present Pain Present Pain Reported Location Right Upper Leg Intensity 6 Scale Used Numeric (0 - 10) Description Aching,Tender,Tightness,With Movement Pain Behaviors Facial Grimacing,Guarding, Holding Area,Restlessness Pain Management Techniques Apply Cold,Modification of Treatment,Re-positioning, Timing of Activity with Medications M4 PT-IP Mobility and Gait Start: 11/09/24 08:35 Freq: NEEDED Status: Active Protocol: Document 11/09/24 09:57 DLM (Rec: 11/09/24 11:45 DL [id number]) PT-Bed Mobility Assessment Supine to Sit Supine to Sit Standby Assistance Sit to Supine Sit to Supine Minimal Assistance Scooting Scooting to Edge of Bed Standby Assistance Scooting Up and Down in Bed Standby Assistance PT-Transfer Assessment Sit to and From Stand Sit to and from Stand Contact Guard Assistance,Use of Upper Extremities Equipment Transfer Assistive Device Gait Belt,Front Wheeled Walker Transfers Transfer Destination Bed,Toilet Transfer Technique Stand Step Pivot Transfer Ability Level of Assist Contact Guard Assistance,Use of Upper Extremities Comments Mobility Comments Pt using UEs to assist right LE out of bed or uses cane as leg hair worker, slow to scoot to edge of bed with poor tolerance of any knee flexion on edge of bed. Slow pace getting out of bed with increased effort. She needed min assist to get right LE back onto the bed from sitting . She needs verbal cues and education to use UE's to assist with sit-stand and safe use of FWW and rails. She needs up to 3 attempts to achieve sit to stand. Gait Assessment Gait Gait Assistance Required: Contact Guard Assist Distance (Feet) 20 Assistive Devices Assistive Device Gait Belt,Front Wheeled Walker Gait Deviations General Gait Pattern Antalgic,Decreased Stride Length,Step-to Gait Factors Limiting Gait Function Factors Limiting Gait Function Decreased Activity Tolerance, Decreased Strength,Limited Range of Motion,Pain,Poor Balance Comments Gait Comments Pt got light-headed when up ambulating in room that did not resolve during this visit. She progressively got worse with sweating, paleness and nausea. Pt had mild dry heaving before returning to supine to better manage her symptoms. She reports feeling better in supine. BP 100/40 and HR 70. Stair Climbing Assessment Comments Stair Climbing Comments unable to progress to stair training due to light- headedness with up this visit PT-Balance Assessment Sitting Balance and Reactions Static Sitting Balance Ability Normal Dynamic Sitting Balance Ability Good Standing Balance and Reactions Static Standing Balance Ability Fair Dynamic Standing Balance Ability Fair Device Used FWW M5 PT-IP Objective Assessments Start: 11/09/24 08:35 Freq: NEEDED Status: Active Protocol: Document 11/09/24 09:57 DLM (Rec: 11/09/24 11:45 DL [id number]) Orientation Orientation/Cognition Level of Alertness Alert Orientation Name,Age,Birthday,Month,Date, Year,Day of Week,Place, Situation Language Function Ability No Deficits Noted Safety Awareness Decreased Safety Awareness Memory Description Short Term Impaired Comments mild decrease memory, able to follow instructions Gross Range of Motion Upper Extremity ROM Assessment Within Functional Limits Lower Extremity ROM Assessment Right Impaired Impairments tolerates about 30 degrees of knee flexion with pain in supine and similar range in sitting, able to fully extend the knee to 0 with pain in supine Strength Upper Extremity Strength Assessment Within Functional Limits Lower Extremity Strength Assessment Right Impaired Hip flex 2-/5, needs assist to lift LE off bed Knee knee ext shows poor quad contraction and poor knee flexion with pain Ankle WFL Coordination Assessment Assessment Coordination Comments mild tremors Sensation Assessment Sensation Gross Sensation WNL Muscle Tone Muscle Tone WNL Yes M6 PT-IP Treatment Start: 11/09/24 08:35 Freq: NEEDED Status: Active Protocol: Document 11/09/24 09:57 DLM (Rec: 11/09/24 11:45 DL [id number]) Physical Therapy Treatment Exercises Exercises Ankle Pumps,Quad Sets,Heel Slides,Straight Leg Raises, Short Arc Quads,Passive Knee Extension Hang Education Education Provided Post-Op Packet,Safety Equipment Issued Equipment Type and Company pt has her 4WW in her room but reports having FWW also at home Other Treatments Other Treatment Performed Her Boyfriend is present this visit and participates in education, pt completed 3-7 reps of each exercise with pain limiting her activity M7 PT-IP Assessment and Plan Start: 11/09/24 08:35 Freq: NEEDED Status: Active Protocol: Document 11/09/24 09:57 DLM (Rec: 11/09/24 11:45 DLM [id number]) PT Summary Assessment and Plan Potential Rehabilitation Potential Excellent Status of Condition at Evaluation Evolving Summary Impairments Pain,ROM,Strength,Balance,Bed Mobility,Transfers,Gait, Activity Tolerance Progress Towards Goals Slow Progress due to Medical Issues Assessment Summary Ludmila was admitted for right total knee arthroplasty. She is experiencing post-op pain in the right knee that interferes with her activity tolerance. She developed light -headedness, paleness, sweating and nausea with activity this visit and had to return to bed to manage her symptoms. She is not ready to discharge home due to the above symptoms that limit her activity. Will continue to progress towards discharge home as her activity tolerance improves. Concerned that her low blood pressure is contributing to her symptoms. Goals Bed Mobility Goal Independent Transfer Goal Independent,Front Wheeled Walker Gait Goal Independent,Front Wheel Walker Gait Distance 150 feet Other Goals Up/down one step with handrail and cane with CG assist Days to Meet Goals 2 Frequency of Treatment Frequency Of Treatment Twice a Day Treatment Plan Physical Therapy Treatment Plan Bed Mobility Training,Transfer Training,Gait Training, Therapeutic Exercise,Balance Retraining,Post Op Education, Discharge Planning,Hot or Cold Pack,Neuromuscular Re-ed Precautions Other Precautions light-headed and nausea this visit, low Blood pressure Weight Bearing Status Weight Bearing Status Weight Bear as Tolerated Allowed Weight Bearing Amount (enter % right LE with FWW or #) (%) Recommendations To Nursing Amount of Assist Needed 1 Person Assist Discharge Recommendations PT Discharge Recommendations Home with Assistance, Outpatient PT Other Discharge Recommendations not ready for discharge yet due to nausea and light-headed when up Transportation Needs at Discharge Private Vehicle - PT assist 1P
[2024-11-09] MEDS: IBUPROFEN 600 MG TABLET PO (10:11)
--- NOTE | 2024-11-09 10:25 | CM.DANOTE ---
Addendum entered by SANDEE Johansen 11/09/24 15:08: ADD: SW met bedside with pt in the afternoon as she had concerns about d/c home and discussed pt's planned surgery currently not C List for Medicare and potential for not having coverage if she remains in the hospital. Pt states her Sig Other has UTI and meets with the Urologist in the AM and SW encouraged pt to reach out to her local sister to get additional support from her at d/c and to see if sister can take 1-2 days off work to help and pt will consider. Per SIGNALING DESIGN ENGINEER, pt continued to have orthostatics this afternoon and Ortho PA [place] updated and UR will attempt to see if pt can be switched to Inpt due to her ongoing bp issues. BF Original Note: Patient is a 69 yo female who was admitted on 11/08/24 for RTKA. Pt has [employer] and [employer] for insurance and her PCP is Camille Lopez. EMR was reviewed. Per Ortho, pt tolerated surgery well and has baseline COPD with home oxygen for night and exertion and to work with PT/OT today to confirm stable for discharge home. Per PT, pt able to ambulate with FWW and recommending home with sig other assist and outpt PT but pt having orthostatic symptoms of bp issues, nausea with dry heaves, etc.. Unclear if pt will be stable for d/c later today vs tomorrow pending symptoms. SW met bedside with pt and Sig Other Gene and explained role and they confirm they live in [place] together and both are active and independent at baseline. Pt uses a FWW and cane for ambulation at baseline and drives a little bit and one step to enter their home. Pt has a Tag Writer established and also sees Dr. Martines Psychiatrist at [facility] at baseline for anxiety. Pt denies any recent hx of HH or SNF and both confirm their preference is to d/c home when stable but pt laying in bed and confirms she feels terrible with dizziness and nausea. Sig Other can assist and provide transport at d/c and pt already has outpt PT set up for next week. Plan: SW to follow for plan of d/c home with Sig Other assist and outpt PT once orthostatics improved later today vs tomorrow. SANDEE Johansen Discharge Planning/Care Management CM Discharge Assessment Start: 11/09/24 10:20 Freq: Status: Active Protocol: Document 11/09/24 10:20 BF (Rec: 11/09/24 10:24 BF [id number]) Discharge Planning Assessment Assigned Tire Assembler SANDEE Trinh DPOA/Assigned Designee Name Sig Other Gene Contact Information [phone] Advance Directives? Yes: POLST DNR Advance Directives on File No History Provided By Patient,Significant Other, Medical Record Has Patient been admitted in last 30 No days? Prior Living Arrangements House Household Members significant other Type of transporation used prior to Drives own vehicle admit Independent with ADL's Yes Is patient alert and oriented? Yes Needs Assistance With Home Chores / Shopping Caregiver for Another No Community Services used prior to Physical Therapy admission: DME Already Rented / Owned FWW / Walker,Cane Comment One step to enter home Patient/Family Preference OP PT Therapy Comment outpt PT already set up Barriers to Discharge No Discharge Plan Home with Home Health Community Services Physical Therapy Transportation Arrangement Sig other bedside and can provide tranport at d/c Referrals Initiated None needed Whiteboard Updated in Patient Room with Yes name and ext. # of Tire Assembler Review Status In Process Please Provide Date Initial DC 11/09/24 Assessment Was Performed Next Review Type Continued Stay Review Pre-Anesthesia Assessment Start: 11/01/24 12:33 Freq: Status: Active Protocol: Document 11/01/24 12:33 LB (Rec: 11/01/24 13:36 LB [id number]) Pre-Anesthesia Assessment PAC Comment 11/01/24 Phone assessment. Patient Information Reviewed Via Phone Assessment Assessment Completed With Patient Diagnostic Results BMP/CMP,CBC,EKG Comment 09/28/24 outside results. Primary Care Provider Camille Lopez Medical Clearance Received Yes Seen Specialist in Last 12 Months Yes Specialist Seen Orthopedist,Tag Writer Primary Language [place] Preferred Language [place] Customs Compliance Director Required No Height 175.26 cm Weight 78.018 kg Body Mass Index (BMI) 25.4 Hearing Ability Normal Visual Assist Glasses Dentition Type Teeth, Natural Present Barriers to Learning None Comment For reading. Hx Anesthesia Reactions No Hx Family Anesthesia Reaction No Hx Malignant Hyperthermia No Hx Blood Transfusions No Anesthesia Review Requested Yes: Surgeon request for COPD. Derrick Worker Well Service No alcohol intake current alcohol intake frequency a few times a week Smoking Status Former smoker how long ago did patient quit smoking Quit 2009. Substance Use Type [#R] does not use Comment Right knee. Musculoskeletal Symptoms Difficulty Walking,Joint Pain History of Falling (Recent or History of Yes ) Comment 2023. Patient is completely paralyzed or No completely immobile Mental Status Oriented to own ability Comment Will bring walker. Is patient on oxygen? Yes: 2L [place] at noc and prn. Does patient have SAHU/SOB Yes Hx Sleep Apnea No CPAP/BIPAP use not prescribed Currently Taking a Beta Morgan No Can You Climb a Flight of Stairs Without No SOB Hx Chest Pain No Hx SOB Yes Hx Syncope or Dizziness No Anti-Coagulant Therapy No Has a Production Posting Clerk No Cardiac Testing Yes: Echo 10/24. Hx Pacemaker/ICD No Dysphagia No Gastrointestinal Symptoms None Bladder Pattern Frequency,Nocturia Urinary Catheter Present No Hx Urinary Self Catheterization No Diabetes No HgbA1C 5.7 Date 09/28/24 Patient No Lactating No Hx Drug Resistant Organism No Presence of External or Internal Medical Yes: Bilat IOL. Devices Have you had any close contact with No someone diagnosed with COVID-19? Are you experiencing any of these No symptoms symptoms? Comment Denies covid last 8 weeks. Marital Status / Lives With significant other Number of Floors (Floors) One Floor Number of Stairs To Enter/Railing? 1 stair to enter with railing. Support System Parent(s),Sibling(s), Significant Other Does the Patient Have Assistance After Yes Surgery Patient Discharge Plan Description Return Home Feels Safe in Current Environment Yes Emergency Contact Name Caterina Ware - Sister Emergency Contact Advance Directives? Yes: POLST Advance Directives on File No Requested Patient Bring Advanced Yes Directives DOS PAC Instructions Assistance for 24 hours post- op,Do not shave/clip surgical site,Durable medical equipment ,Medications to take/avoid, Nasal antibiotic,No ETOH/ petroleum product on skin DOS, NPO,Post-op transportation,Pre -surgical wash,Sensory aids, Sturdy shoes/comfortable clothes,Do not bring valuables and remove jewelry
--- NOTE | 2024-11-09 11:28 | OT.IP.EVAL ---
Current Diagnoses Unilateral primary osteoarthritis, left knee (11/08/24) Surgery Performed Operation Date: 11/08/24 10:45 Actual Procedures p Total Knee Arthroplasty - Robot(Right) - Maryam Harper MD Past Medical History (Last Updated 11/01/24 @ 13:00 by Vanessa Turner, RN) Abnormal Pap smear of cervix Anxiety (2006) Bacterial pneumonia (2014) Bipolar disorder (2006) Centrilobular emphysema (2007) Chicken pox (195) Chronic back pain (2014) Colon polyps (2008) COPD (chronic obstructive pulmonary disease) (1999) Depression Fractures (2010) 3 para 3 Hyperlipidemia Hypertension Lung nodule Measles Mild cognitive impairment Mumps Other osteoporosis without current pathological fracture (03/12/17) RLS (restless legs syndrome) (2011) Scalp psoriasis (2014) Tendinitis involving left hip abductors Surgical History (Last Updated 11/01/24 @ 13:56 by Vanessa Turner, RN) Anesthesia History of cataract extraction (2023) History of knee surgery (2014) History of vaginal surgery Status post right foot surgery (2004) Occupational Therapy Inpatient Evaluation/Re-Eval M1 PT/OT-IP Prior Functional Status Start: 11/09/24 08:35 Freq: NEEDED Status: Active Protocol: Document 11/09/24 10:40 [facility] (Rec: 11/09/24 12:20 [facility] [id number]) Medical Review Prior Functional Status Medical History Reviewed Yes Diet/Fluid Consistency Regular Communication WNL Mobility and Gait Independent without device, community distances Activities of Daily Living and IADL's Independent Prior Functional Level (Other details) Pt's SO is very hard of hearing and currently has UTI per pt. Social History Household Members significant other Living Arrangements House Number of Floors (Floors) One Floor Number of Stairs To Enter/Railing? one step to enter with one rail Home Environment Standard Height Toilet,Walk in Shower,Tub/Shower,Tub/Shower Doors Home Equipment Front Wheel Walker,Four Wheel Walker,Straight Cane,Raised Toilet Seat w/Armrests,Shower Seat without Backrest Employment Status Retired Additional Social History Comment attended out-pt PT before surgery M2 OT-IP Current Condition Start: 11/09/24 11:53 Freq: Status: Active Protocol: Document 11/09/24 10:40 [facility] (Rec: 11/09/24 12:20 [facility] [id number]) Occupational Therapy Current Condition Current Condition Evaluation Date 11/09/24 Treatment Diagnosis S/P R TKA Diagnosis Onset Date 11/08/24 M3 OT- IP Subjective and Pain Start: 11/09/24 11:53 Freq: Status: Active Protocol: Document 11/09/24 10:40 [facility] (Rec: 11/09/24 12:20 [facility] [id number]) OT- Subjective Occupational Therapy Visit Type Type Initial Evaluation Visit Start Time 10:40 Visit Stop Time 11:28 Occupational Therapy Visit Comments Patient Comments Pt agreed to get up to use the BSC. Patient/Caregiver Goals TO go home. OT Pain Assessment Pain When Pain Assessed During Mobility Pain Present Pain Present Pain Reported Location Right Upper Leg Intensity 7 Scale Used Numeric (0 - 10) M4 OT- IP ADL's Start: 11/09/24 11:53 Freq: Status: Active Protocol: Document 11/09/24 10:40 [facility] (Rec: 11/09/24 12:20 [facility] [id number]) OT [id number] Comments OT Self-Feeding Comments Not at meal time. OT ADL-Grooming General Evaluation Grooming Ability Independent OT ADL-Oral Care General Eval Oral Care Ability Standby Assistance Areas of Assistance Retrieving/Set-Up of Items Comments Oral Care Comments While in bed. OT ADL-Dressing General Eval Lower Body Dressing Ability Maximum Assistance Areas Needing Assistance Socks Comments OT Dressing Comments Able to educated pt to rivas RLE first and take out last. Able to show LB dressing equipment. OT ADL-Toileting General Evaluation Toileting Ability Minimal Assistance Comments OT Toileting Comments CGA for wiping. Pt will need ERIC for clothing management needs at this time due to decreased balance. Pt will benefit from a BSC as pt states has to use the bathroom every 2 hours. OT ADL-Bathing Comments OT Bathing Comments Not performed. M5 OT- IP IADL's Start: 11/09/24 11:53 Freq: Status: Active Protocol: Document 11/09/24 10:40 [facility] (Rec: 11/09/24 12:20 [facility] [id number]) OT-Instrumental Activities of Daily Living Home Safety Awareness Awareness of Need for Assistance at Home Good Awareness Medication Management Medication Management Comments Pt is a bit groggy and will benefit from assist. Money Management Money Management Comments Pt will benefit from assist. Meal Preparation Meal Preparation Caregiver Provides Assist Equipment Operator Warehouse Equipment [employer] No Deficits Identified M6 OT- IP Functional Cognition Start: 11/09/24 11:53 Freq: Status: Active Protocol: Document 11/09/24 10:40 [facility] (Rec: 11/09/24 12:20 [facility] [id number]) Cognitive Factors Limiting Selfcare Function Cognitive Ability Level of Alertness Alert Patient Orientation Name,Place,Situation Attention Span Ability Capable of Focused Attention, Capable of Sustained Attention Ability to Follow Commands Able to Follow One Step Commands Cognitive Comments Cognitive Assessment Comments Pt able to follow commands for ADL and mobility needs. Pt still a little groggy from surgery. OT- Vision and Hearing OT- Hearing Assessment OT- Hearing Assessment WFL OT- Vision Assessment Visual Acuity Glasses For Reading Visual Attentiveness WFL Occular Pursuits WFL M7 OT- IP Mobility and Balance Start: 11/09/24 11:53 Freq: Status: Active Protocol: Document 11/09/24 10:40 [facility] (Rec: 11/09/24 12:20 [facility] [id number]) OT- Bed Mobility Assessment Supine to Sit Supine to Sit Assist Minimal Assistance Sit to Supine Sit to Supine Assist Minimal Assistance OT-Transfer Assessment Sit to and From Stand Sit to and from Stand Minimal Assistance,Moderate Assistance Transfers Transfer Ability Minimal Assistance Technique Transfer Destination Bed,Bedside Commode Transfer Technique Stand Step Pivot Devices Transfer Assistive Devices Gait Belt,Front Wheeled Walker Comments Mobility Comments BP supine 108/51, sitting 109/ 46, after standing 102/36, sitting 104/39 and supine 98/ 47 pt symptomatic and nursing notified. Pt able to use cane to assist to lift up her RLE and also needing assist from therapist. MIN/MOD A to stand to the FWW ERIC to get to the BSC. OT- Balance Assessment Sitting Balance and Reactions Static Sitting Balance Ability Normal Dynamic Sitting Balance Ability Good Standing Balance and Reactions Static Standing Balance Ability Fair Dynamic Standing Balance Ability Fair M8 OT- IP Objective Assessments Start: 11/09/24 11:53 Freq: Status: Active Protocol: Document 11/09/24 10:40 [facility] (Rec: 11/09/24 12:20 [facility] [id number]) OT Gross Range of Motion Upper Extremity Range of Motion Assessment Within Functional Limits OT Strength Upper Extremity Strength Assessment Within Functional Limits M9 OT- IP Assessment and Plan Start: 11/09/24 11:53 Freq: Status: Active Protocol: Document 11/09/24 10:40 [facility] (Rec: 11/09/24 12:20 [facility] [id number]) OT Summary Assessment and Plan Potential Rehabilitation Potential Excellent Analytic Complexity at Evaluation Low Summary OT Impairments Pain,Strength,Balance, Functional Mobility,Grooming, Dressing,Toileting,Bathing, Toilet Transfers,Shower Transfers,Activity Tolerance Progress Towards Goals Slow Progress due to Pain,Slow Progress due to Medical Issues,Slow Progress due to Activity Tolerance Assessment Summary Pt low complexity and make barriers are a step, hypotensive, and needing assist at least ERIC for mobility needs. Pt will benefit from getting a BSC. Pt to go home with 24/7 assist when medically stable. Goals Dressing Goal Minimal Assistance,Long Handled Shoe Horn Toileting Goal Independent Bathing Goal Minimal Assistance Toilet Transfer Goal Independent Shower Transfer Goal Contact Guard Assistance Days to Meet Goals 5 Frequency of Treatment Other frequency 5x/week Treatment Plan OT Treatment Plan ADL Training,Functional Mobility,Patient/Family Education,Discharge Planning Other Treatment Recommendations and Next Standing ADL's Treatment Focus Discharge Recommendations OT Discharge Recommendations Home with 24/7 Assist Available,Outpatient PT Transportation Needs at Discharge Private Vehicle
--- NOTE | 2024-11-09 13:55 | PT.IPTN ---
Current Diagnoses Unilateral primary osteoarthritis, left knee (11/08/24) Surgery Performed Operation Date: 11/08/24 10:45 Actual Procedures p Total Knee Arthroplasty - Robot(Right) - Maryam Harper MD Physical Therapy Treatment Note M2 PT-IP Current Condition Start: 11/09/24 08:35 Freq: NEEDED Status: Active Protocol: Document 11/09/24 09:57 [facility] (Rec: 11/09/24 11:45 [facility] [id number]) Physical Therapy Current Condition Current Condition Evaluation Date 11/09/24 Treatment Diagnosis right total knee arthroplasty, impaired gait Onset Date 11/08/24 M3 PT-IP Subjective Start: 11/09/24 08:35 Freq: NEEDED Status: Active Protocol: Document 11/09/24 13:22 [place] (Rec: 11/09/24 14:38 [place] [id number]) Subjective Physical Therapy Visit Type Type Treatment Note Visit Start Time 13:22 Visit Stop Time 13:55 Number of [employer] APPRENTICE Visits 1 Physical Therapy Visit Comments Patient Comments Pt in chair upon arrival, willing to work w/ PT. Therapy Pain Assessment Location Right Upper Leg Scale Used not quantified Description Aching,Tender,Tightness,With Movement Pain Behaviors Facial Grimacing,Guarding, Holding Area,Restlessness Pain Management Techniques Apply Cold,Modification of Treatment,Re-positioning, Timing of Activity with Medications M4 PT-IP Mobility and Gait Start: 11/09/24 08:35 Freq: NEEDED Status: Active Protocol: Document 11/09/24 13:22 [place] (Rec: 11/09/24 14:38 [place] [id number]) PT-Bed Mobility Assessment Sit to Supine Sit to Supine Minimal Assistance Scooting Scooting to Edge of Bed Standby Assistance Scooting Up and Down in Bed Standby Assistance PT-Transfer Assessment Sit to and From Stand Sit to and from Stand Minimal Assistance,1 Person Assistance,Use of Upper Extremities Equipment Transfer Assistive Device Gait Belt,Front Wheeled Walker Transfers Transfer Destination Bed,Chair Transfer Technique Stand Step Pivot Transfer Ability Level of Assist Contact Guard Assistance,Use of Upper Extremities Comments Mobility Comments Pt in chair upon arrival, agreeable to working w/ PT. Pts BP sitting in chair 112/63 and reports feeling okay. Min A for sit<>stand w/ FWW from chair. Pt c/o pain. Upon standing, pt begins to feel dizzy and becomes pale and needs to sit down. BP 108/53. Pt took seated rest break and then agreed to transfer to bed . Min A for sit<>stand and CGA for stand step pivot to bed. Min A for LE elevation back into bed, pts BP 108/54 and pt c/o dizziness. RN notified. Gait Assessment Gait Gait Assistance Required: Contact Guard Assist Distance (Feet) 5 Assistive Devices Assistive Device Gait Belt,Front Wheeled Walker Gait Deviations General Gait Pattern Antalgic,Decreased Stride Length,Step-to Gait Factors Limiting Gait Function Factors Limiting Gait Function Decreased Activity Tolerance, Decreased Strength,Limited Range of Motion,Pain,Poor Balance Comments Gait Comments Pt continues to become dizzy, pale, and light headed when standing and is unable to tolerate standing for very long. She was able to complete a transfer from the chair to bed, but at this time would not be capable of walking into her home and going up a step. Will continue to assess progress. Stair Climbing Assessment Comments Stair Climbing Comments unable to progress to stair training due to light- headedness with up this visit PT-Balance Assessment Sitting Balance and Reactions Static Sitting Balance Ability Normal Dynamic Sitting Balance Ability Good Standing Balance and Reactions Static Standing Balance Ability Fair Dynamic Standing Balance Ability Fair Device Used FWW M5 PT-IP Objective Assessments Start: 11/09/24 08:35 Freq: NEEDED Status: Active Protocol: Document 11/09/24 09:57 [facility] (Rec: 11/09/24 11:45 [facility] [id number]) Orientation Orientation/Cognition Level of Alertness Alert Orientation Name,Age,Birthday,Month,Date, Year,Day of Week,Place, Situation Language Function Ability No Deficits Noted Safety Awareness Decreased Safety Awareness Memory Description Short Term Impaired Comments mild decrease memory, able to follow instructions Gross Range of Motion Upper Extremity ROM Assessment Within Functional Limits Lower Extremity ROM Assessment Right Impaired Impairments tolerates about 30 degrees of knee flexion with pain in supine and similar range in sitting, able to fully extend the knee to 0 with pain in supine Strength Upper Extremity Strength Assessment Within Functional Limits Lower Extremity Strength Assessment Right Impaired Hip flex 2-/5, needs assist to lift LE off bed Knee knee ext shows poor quad contraction and poor knee flexion with pain Ankle WFL Coordination Assessment Assessment Coordination Comments mild tremors Sensation Assessment Sensation Gross Sensation WNL Muscle Tone Muscle Tone WNL Yes M6 PT-IP Treatment Start: 11/09/24 08:35 Freq: NEEDED Status: Active Protocol: Document 11/09/24 13:22 [place] (Rec: 11/09/24 14:38 [place] [id number]) Physical Therapy Treatment Exercises Exercises Ankle Pumps,Gluteal Sets,Quad Sets,Heel Slides Education Education Provided Post-Op Packet,Safety Equipment Issued Equipment Type and Company pt has her 4WW in her room but reports having FWW also at home M7 PT-IP Assessment and Plan Start: 11/09/24 08:35 Freq: NEEDED Status: Active Protocol: Document 11/09/24 13:22 [place] (Rec: 11/09/24 14:38 [place] [id number]) PT Summary Assessment and Plan Potential Rehabilitation Potential Excellent Summary Impairments Pain,ROM,Strength,Balance,Bed Mobility,Transfers,Gait, Activity Tolerance Progress Towards Goals Slow Progress due to Medical Issues Assessment Summary Pt is still limited by symptomatice low BP. Upon standing she becomes pale and experiences dizziness and lightheadedness. She requires Min A for sit<>stand w/ FWW, CGA for stand step pivot transfer, and Min A for sit<> sup for LE elevation into bed. At this time, she is not safe to go home due to her symptoms that would prevent her from being able to walk from her car inside her home and up a step to enter. Will continue to progress towards discharge home as her activity tolerance improves. Concerned that her low blood pressure is contributing to her symptoms. Goals Bed Mobility Goal Independent Transfer Goal Independent,Front Wheeled Walker Gait Goal Independent,Front Wheel Walker Gait Distance 150 feet Other Goals Up/down one step with handrail and cane with CG assist Days to Meet Goals 2 Frequency of Treatment Frequency Of Treatment Twice a Day Treatment Plan Physical Therapy Treatment Plan Bed Mobility Training,Transfer Training,Gait Training, Therapeutic Exercise,Balance Retraining,Post Op Education, Discharge Planning,Hot or Cold Pack,Neuromuscular Re-ed Precautions Other Precautions light-headed and nausea this visit, low Blood pressure Weight Bearing Status Weight Bearing Status Weight Bear as Tolerated Allowed Weight Bearing Amount (enter % right LE with FWW or #) (%) Recommendations To Nursing Amount of Assist Needed 1 Person Assist Discharge Recommendations PT Discharge Recommendations Home with Assistance, Outpatient PT Other Discharge Recommendations not ready for discharge yet due to nausea and light-headed when up Transportation Needs at Discharge Private Vehicle - PT assist 1P
[2024-11-09 14:34] VITALS: PULSE 68; RESP 18; O2SAT 96
[2024-11-09 19:35] VITALS: PULSE 70; RESP 18; O2SAT 97
[2024-11-09] MEDS: lamoTRIgine 100 MG TABLET 200 MG PO (20:20)
[2024-11-09] MEDS: MONTELUKAST 10 MG TABLET PO (20:20)
[2024-11-09] MEDS: OXYCODONE IR 10 MG TABLET PO (20:20)
[2024-11-09 21:10] VITALS: BP 125/57; PULSE 67; RESP 18; TEMP 36.6; O2SAT 94
--- NOTE | 2024-11-09 21:30 | PC.NURSE ---
This RN completed physical assessment and ambulated patient to bedside commode. Patient did mention that her day was frustrating and she couldn't move like I want'. This RN gave therapeutic communication stating everyone is different, every patient is different. Joyce Tena RN administered nighttime and pain medications to patient. Deb CHARLES made this RN aware that patient was crying. This RN went to speak with patient, patient while crying stated you made me feel like a baby, like I was not moving well enough This RN apologized for miscommunication and asked if patient wanted a new nurse, patient agreed. Coordinator Leena MORGAN made aware, report given to Darinel MORGAN.
[2024-11-09] MEDS: HYDROMORPHONE 0.5 MG INJ IV (21:44)
[2024-11-09] MEDS: hydrOXYzine HCL 25 MG TABLET PO (21:45)
[2024-11-09 23:32] VITALS: O2SAT 98
[2024-11-10] MEDS: ACETAMINOPHEN 325 MG TABLET 650 MG PO ×2 (00:49→08:22)
[2024-11-10] MEDS: OXYCODONE IR 10 MG TABLET PO ×2 (00:49→09:54)
[2024-11-10] MEDS: IBUPROFEN 600 MG TABLET PO ×2 (00:49→08:21)
[2024-11-10] MEDS: HYDROMORPHONE 0.5 MG INJ IV (02:26)
[2024-11-10] MEDS: OXYCODONE IR 5 MG TABLET PO (05:20)
--- NOTE | 2024-11-10 07:55 | P.DS_ITS ---
History of Present Illness History of Present Illness Chief complaint: R TKA *OPB* Narrative: Ludmila is a pleasant 69 year old female who is POD#2 s/p R TKA by Dr. Harper. This morning patient reports she is feeling better than yesterday. She has yet to work w/ PT today but plans on her partner coming to the hospital this afternoon for caregiver training w/ PT. She lives at home w/ her partner Yoshi who is willing and able to aid in her post-op care. She reports they only have 2 steps into the house. She has walker and cane at home already, has outpaient PT scheduled at [facility]. She has been urinating well w/o issue. Pain is moderate but seems to be well controlled w/ PO Oxycodone, she has post- op pain medication at home already. Denies nausea, vomiting, chest pain. Operative Date/Time/Diagnoses Date of procedure: 11/08/24 Time of procedure: 12:00 Pre-op diagnosis: Right knee arthritis Post-op diagnosis: same Procedure & Clinicians Procedure: Right knee replacement CPT code 04261 Robotic assisted knee replacement [id number] Computer navigation assisted surgery [id number] Same procedure as scheduled: Yes Indications: The patient has significant pain associated with osteoarthritis of the right knee. It is associated with morning stiffness. Pain interferes with daily normal function including ambulation standing and any activities that are weight-bearing. It interferes with sleep. There is crepitation with range of motion. There is marked joint line tenderness. X-rays show significant levels of osteoarthritis. attempted previous conservative treatment has been rendered. The patient has failed exercise program, medications and previous injections. Patient is indicated for total knee arthroplasty. The risks and benefits of the procedure have been discussed with the patient and given the opportunity to ask questions. The risks of surgery include but are not limited to infection, malunion, nonunion, persistence of pain, damage to nerves and blood vessels, posttraumatic arthritis, DVT, PE, cardiopulmonary complications and . The patient expressed a thorough understanding of the risks and benefits of surgery and has elected to proceed. Consent was signed. During the operation, the services of a physician employment legal assistant were medically indicated and necessary to provide the exposure of the operative site for the surgical procedure and to maintain the limb in a proper position to carry out the operation safely and efficiently. Without a qualified assistant banquet manager being present this would extended the operative procedure and made the procedure technically more difficult to perform. Surgeon: Maryam Harper Direct Casting Operator: Krishan Jacobson Click Yes if Unassisted: Yes Anesthesia Type: General, Spinal, Peripheral nerve block and Local Discharge Providers Provider Date of admission: 11/09/24 14:06 Discharge Date: 11/10/24 Primary care physician: Camille Lopez DO Consults: 11/01/24 13:36 Consult to Anesthesiology Routine Comment: Consulting Provider: Anesthesiologist Reason for consultation: Surgeon request for COPD. 11/08/24 06:00 Consult to Anesthesiology Routine Comment: Consulting Provider: Anesthesiologist Reason for consultation: Regional block for post operative pain control 11/08/24 14:35 Consult to Discharge Planning Routine Comment: Consult to Occupational Therapy Evaluate & Treat Comment: Physician Instructions: Evaluate and treat Consult to Physical Therapy Evaluate & Treat Comment: Physician Instructions: postop TKA protocol Discharge provider: Kristy Preciado PA-C Summary Hospital Course Discharge Diagnosis: stable s/p right TKA Hospital Course: Hospital course complicated by orthostatic hypotension on POD#1 Exam Vital Signs (past 8 hours): Fraction of Inspired Oxygen 28 SaO2/FiO2 Ratio 350 Oxygen Delivery Method Nasal Cannula Oxygen Flow Rate 2 Narrative Exam Narrative: Patient lying comfortably in bed during our interview today. No acute distress. AOx3. Grossly normal alignment of the RLE with mild swelling throughout. 5/5 strength with DF, PF, EHL bilaterally. Very little knee flexion or extension. Gross sensation intact throughout bilateral lower extremities. Calves soft and non-tender bilaterally. SCDs are on and functioning. Brisk capillary refill, pulses intact. Post-surgical Aquacel dressing clean, dry and intact over the right knee without drainage. Objective Labs 11/09/24 05:01 [facility] Medical History (Updated 11/01/24 @ 13:00 by Vanessa Turner RN) Depression Mild cognitive impairment Tendinitis involving left hip abductors Lung nodule Hypertension Fractures (2010) Scalp psoriasis (2014) Colon polyps (2008) Bipolar disorder (2006) Chicken pox (1955) Hyperlipidemia Measles Mumps RLS (restless legs syndrome) (2011) Chronic back pain (2014) 3 para 3 Abnormal Pap smear of cervix Bacterial pneumonia (2014) Centrilobular emphysema (2007) COPD (chronic obstructive pulmonary disease) (1999) Other osteoporosis without current pathological fracture (03/12/17) Anxiety (2006) Surgical History (Updated 11/01/24 @ 13:56 by Vanessa Turner RN) History of cataract extraction (2023) Anesthesia History of vaginal surgery History of knee surgery (2014) Status post right foot surgery (2004) Family History (Updated 02/21/18 @ 16:24 by Supriya Verdin) Father Heart disease Hypertension High cholesterol Mother Pneumonia Social History household members: significant other Smoking Status: Former smoker alcohol intake: current Discharge Assessment & Plan Assessment and Plan Assessment: Status post right knee total arthroplasty Plan of Treatment: 1) Plan to discharge to home today with family/ pending PT evaluation. 2) Continue multimodal pain management with ice to the knee for additional pain control. Patient has post-op pain medication at home already. You also have prescriptions diclofenac for least the 1st 10 days after surgery to help with pain control. Use as prescribed. And acetaminophen (Tylenol) take 500-1000 mg 3 times a day for pain control. Oxycodone 5 mg q.4 hours PRN for breakthrough pain. ? ? 3) ASA b.i.d. for DVT prophylaxis for 6 weeks. 4) Start outpatient physical therapy to work on range of motion and mobility. Patient has PT scheduled at [facility]. [facility]. Initiate outpatient physical therapy in the next 5-10 days. 5) Keep dressing intact, clean, dry until 2 week postop appointment. No soaking the incision site in pools or tubs. No topical ointments or creams to the incision site. If dressing becomes dirty or disrupted, replace with appropriate sized dressing. 6) Follow up at [facility] in 2 weeks for a postop appointment and wound check. All patient's questions were answered, they demonstrates understanding and are in agreement with the plan. Call our office if any questions or concerns arise. Discharge Plan Discharge Plan Patient Disposition: Home Provider Discharge Comment: DC pending PT approval Discharge orders & Medications Prescriptions: New aspirin 81 mg Tablet,Delayed Release (Dr/Ec) 81 mg PO BID Qty: 90 0RF Continued vilazodone 40 mg tablet 40 mg PO DAILY Qty: 90 3RF Rx Instructions: must administer with a meal/food clonazepam 0.5 mg tablet 0.5 mg PO BID MDD 1mg PRN (Reason: anxiety) Qty: 180 1RF multivitamin [Multiple Vitamins] 1 EACH tablet 1 tab PO DAILY Qty: 0 montelukast 10 mg tablet 10 mg PO BEDTIME Qty: 90 3RF trazodone 50 mg tablet 100 mg PO BEDTIME PRN (Reason: insomnia) Qty: 180 0RF Breztri Aerosphere 160-9-4.8 mcg/actuation HFA aerosol inhaler 2 inh INHALATION BID Patient Comments: [NO ORIGINAL SIG] amlodipine 5 mg tablet 5 mg PO DAILY lamotrigine 200 mg tablet 200 mg PO BEDTIME MDD 200mg MDD Combivent Respimat 20-100 mcg/actuation mist 1 puff inhalation PRN PRN (Reason: SOB.) acetaminophen [Tylenol Extra Strength] 500 mg Tablet 1,000 mg PO BID PRN (Reason: Pain (Scale Score 4-6)) rosuvastatin 5 mg tablet 5 mg PO DAILY calcipotriene 0.005 % solution 1 applic topical DAILY Rx Instructions: rub in gently and completely diclofenac sodium 75 mg tablet,delayed release (DR/EC) 75 mg PO BID clobetasol 0.05 % solution 1 applic topical DAILY (DME) disabled Parking Pass See Rx Instructions .Route .MEDSUPPLY Qty: 1 0RF Rx Instructions: As directed Follow up/Referrals: Camille Lopez DO [Primary Care Provider] - Maryam Harper MD [Physician] - Diet/Activity/Treatments Diet: Diet as Tolerated Skin/Wound/Dressing Care Report to your healthcare provider any signs of infection, such as:: chills, fever, night sweats, increased pain, unusual drainage and unusual redness Other wound treatment: Dressing/Wound care: -Remove the Trey wrap 48 hours after surgery. -Keep Aquacell dressing in place until postoperative follow-up office visit. -you may see some drainage on the bandage, this is ok. If it is leaking or saturated, then the dressing can be changed to clean gauze or a clean surgical dressing from a pharmacy or reinforced with additional gauze and paper tape or dressings over the top. Otherwise, just keep dressing in place until follow up. -Okay to shower. Keep wound out of direct water stream. No soaking or submerging until all the scabs fall off (approximately 6 weeks). -Please call the office if dressing becomes significantly wet, soiled, or saturated. Activities: -Weight-bearing as tolerated. Use front wheeled walker, and progress to cane when safe. -Continue with home exercises as directed by your physical therapist. -Elevate ?toes above the nose if you have significant swelling in your lower leg. (A wedge pillow is easiest.) -Ice your incision as needed for pain/inflammation/swelling. Protect your skin with a folded pillowcase. Follow-up: -Follow-up with your surgeon or PA in the office in 10-14 days after surgery. -Follow-up with your surgeon 6 weeks postoperatively. Call the office if you have chest pain, shortness of breath, significant swelling that will not resolve with elevating, fever over 101?, significantly worsening pain. [facility]: [phone] You have been discharged with medications. These have already been sent to your pharmacy. Pain include pain medications: Oxycodone take 5 mg orally every 4 hours as needed for pain. If your pain is more severe you may take up to 2 or a maximum 3 pills (15 mg) every 4 hours for pain. Take the smallest dose necessary. Narcotic medication can make you feel constipated. You can get hlbz-iwx-qlurnip stool softener such as docusate sodium-Colace at a pharmacy to help with this. You also have prescriptions diclofenac for least the 1st 10 days after surgery to help with pain control. Use as prescribed. And acetaminophen (Tylenol) take 500-1000 mg 3 times a day for pain control. You also have a prescription for Zofran (ondansetron) this is a strong anti nausea medication that can be taken up to every 8 hours as needed for nausea Additionally will take a baby aspirin 81 mg twice a day (morning and night) to help prevent blood clots If you have been discharged with ketorolac (toradol) this is a strong anti- inflammatory, do not take ibuprofen/meloxicam/mortin or other NSAIDS while on ketorolac. Once your ketorolac prescription is finished, you may restart taking other NSAIDs again. narcotic pain medication, tylenol and aspirin are fine to continue while on ketorolac. Visit Report/Discharge Packet Instructions: DI for Knee Replacement, DI for Prescription Opioid Use Stand Alone Forms: Patient Portal/API, Surgery Discharge Discharge Data Primary Care Provider: Camille Lopez VTE Deep Vein Thrombosis/Pulmonary Embolism Present on Admission: No
[2024-11-10 08:00] VITALS: BP 116/57; PULSE 75; RESP 16; TEMP 36.8; O2SAT 94
[2024-11-10] MEDS: ASPIRIN EC 81 MG TABLET PO (08:21)
[2024-11-10] MEDS: hydrOXYzine HCL 25 MG TABLET PO (08:21)
[2024-11-10] MEDS: DOCUSATE 100 MG CAPSULE PO (08:21)
--- NOTE | 2024-11-10 09:05 | PT.IPTN ---
Current Diagnoses Unilateral primary osteoarthritis, left knee (11/09/24) Surgery Performed Operation Date: 11/08/24 10:45 Actual Procedures p Total Knee Arthroplasty - Robot(Right) - Maryam Harper MD Physical Therapy Treatment Note M2 PT-IP Current Condition Start: 11/09/24 08:35 Freq: NEEDED Status: Active Protocol: Document 11/09/24 09:57 DLM (Rec: 11/09/24 11:45 DLM [id number]) Physical Therapy Current Condition Current Condition Evaluation Date 11/09/24 Treatment Diagnosis right total knee arthroplasty, impaired gait Onset Date 11/08/24 M3 PT-IP Subjective Start: 11/09/24 08:35 Freq: NEEDED Status: Active Protocol: Document 11/10/24 09:05 AB (Rec: 11/10/24 12:41 AB [id number]) Subjective Physical Therapy Visit Type Type Treatment Note Visit Start Time 09:05 Visit Stop Time 09:50 Number of BANK PRESIDENT Visits 45 Physical Therapy Visit Comments Patient Comments agreeable to do PT Therapy Pain Assessment Pain When Pain Assessed At Rest Pain Present Pain Present Pain Reported Location Right Upper Leg Intensity 4 Scale Used Numeric (0 - 10) M4 PT-IP Mobility and Gait Start: 11/09/24 08:35 Freq: NEEDED Status: Active Protocol: Document 11/10/24 09:05 AB (Rec: 11/10/24 12:41 AB [id number]) PT-Bed Mobility Assessment Supine to Sit Supine to Sit Maximum Assistance PT-Transfer Assessment Sit to and From Stand Sit to and from Stand Moderate Assistance,Maximum Assistance,1 Person Assistance ,Use of Upper Extremities Equipment Transfer Assistive Device Gait Belt,Front Wheeled Walker Orthotic/Prosthetic Devices or Brace: No Transfers Transfer Destination Chair Transfer Technique Stand Step Pivot Transfer Ability Level of Assist Moderate Assistance,1 Person Assistance,Use of Upper Extremities Comments Mobility Comments pt in bed and agreeable to do PT. BP: 103/51 O2 sat: 90-91 %. completed supine to sit max A and max cues. (+) SOB. O2 sat 86%. cued for PLB. O2 sat increased to 94%. sit to stand form EOB max A and cues and ambulated ~ 20 ft using FWW mod A. BP: 110/55 O2 sat checked: 86%. >15 to increase to 91% informed nurse and okayed to put supplemental o2 on 2L/min. O2 sat: 94%. educated pt on sit<>stand techniques: completed sit<> stand x 2 reps requiring mod to max A and max cues.pt agreed to walk again and completed~ 20 ft using fWW mod A and max cues. pt sat back on chair. O2 sat 87% with 2L/ min O2. O2 sat increased 91- 92% in ~ <5 sec. positioned pt on the chair. call light and table placed within reach. informed pt regarding caregiver training. pt will contact her spouse to come in this afternoon. nurse informed. Gait Assessment Gait Gait Assistance Required: Moderate Assistance Distance (Feet) 20 Able to Maintain Weight Bearing Status Yes During Gait Assistive Devices Assistive Device Gait Belt,Front Wheeled Walker Orthotic/Prosthetic Devices or Brace: No Gait Deviations General Gait Pattern Antalgic,Decreased Stride Length,Decreased Feet Clearance Factors Limiting Gait Function Factors Limiting Gait Function Decreased Activity Tolerance, Decreased Strength,Difficulty Following Directions,Limited Range of Motion,Pain,Poor Balance,Poor Safety Awareness, Respiratory Distress M5 PT-IP Objective Assessments Start: 11/09/24 08:35 Freq: NEEDED Status: Active Protocol: Document 11/09/24 09:57 DLM (Rec: 11/09/24 11:45 DLM [id number]) Orientation Orientation/Cognition Level of Alertness Alert Orientation Name,Age,Birthday,Month,Date, Year,Day of Week,Place, Situation Language Function Ability No Deficits Noted Safety Awareness Decreased Safety Awareness Memory Description Short Term Impaired Comments mild decrease memory, able to follow instructions Gross Range of Motion Upper Extremity ROM Assessment Within Functional Limits Lower Extremity ROM Assessment Right Impaired Impairments tolerates about 30 degrees of knee flexion with pain in supine and similar range in sitting, able to fully extend the knee to 0 with pain in supine Strength Upper Extremity Strength Assessment Within Functional Limits Lower Extremity Strength Assessment Right Impaired Hip flex 2-/5, needs assist to lift LE off bed Knee knee ext shows poor quad contraction and poor knee flexion with pain Ankle WFL Coordination Assessment Assessment Coordination Comments mild tremors Sensation Assessment Sensation Gross Sensation WNL Muscle Tone Muscle Tone WNL Yes M6 PT-IP Treatment Start: 11/09/24 08:35 Freq: NEEDED Status: Active Protocol: Document 11/10/24 09:05 AB (Rec: 11/10/24 12:41 AB [id number]) Physical Therapy Treatment Exercises Exercises Ankle Pumps,Gluteal Sets,Quad Sets,Heel Slides Education Education Provided Safety M7 PT-IP Assessment and Plan Start: 11/09/24 08:35 Freq: NEEDED Status: Active Protocol: Document 11/10/24 09:05 AB (Rec: 11/10/24 12:41 AB [id number]) PT Summary Assessment and Plan Potential Rehabilitation Potential Fair Summary Impairments Pain,ROM,Strength,Balance, Coordination,Sensation,Tone, Cognition,Bed Mobility, Transfers,Gait,Activity Tolerance Progress Towards Goals Slow Progress due to Medical Issues,Slow Progress due to Activity Tolerance Assessment Summary pt requiring mod to max A with mobiltiy using fWW. pt wants to go home and spouse to assist. caregiver training set up this afternoon. will continue to assess. Goals Bed Mobility Goal Independent Transfer Goal Independent,Front Wheeled Walker Gait Goal Independent,Front Wheel Walker Gait Distance 150 feet Other Goals Up/down one step with handrail and cane with CG assist Days to Meet Goals 5 Frequency of Treatment Frequency Of Treatment Twice a Day Treatment Plan Physical Therapy Treatment Plan Bed Mobility Training,Transfer Training,Gait Training, Therapeutic Exercise,Balance Retraining,Post Op Education, Discharge Planning,Hot or Cold Pack,Neuromuscular Re-ed Weight Bearing Status Weight Bearing Status Weight Bear as Tolerated Allowed Weight Bearing Amount (enter % right LE with FWW or #) (%) Recommendations To Nursing Amount of Assist Needed 1 Person Assist Discharge Recommendations PT Discharge Recommendations Home with Assistance, Outpatient PT Transportation Needs at Discharge Private Vehicle - PT assist 1P
[2024-11-10] MEDS: ALBUTEROL/IPRATROPIUM 3 ML AMPUL INH ×2 (09:30→09:33)
[2024-11-10] MEDS: BUDESONIDE 0.5 MG/2 ML NEB INH (09:33)
[2024-11-10 10:29] VITALS: PULSE 68; RESP 16; O2SAT 97
--- NOTE | 2024-11-10 12:12 | CM.DPNOTE ---
DCP Continued: Reviewed EMR and team rounds for pt?s medical status. It is reported that pt is medically cleared to dc home today. No discharge needs identified at this time. Plan: Discharge orders are in, anticipating dc home with significant other. CM Team will continue to follow for coordination of discharge plans. CHRISTINE Diamond
--- NOTE | 2024-11-10 13:30 | PT.IPTN ---
Current Diagnoses Unilateral primary osteoarthritis, left knee (11/09/24) Surgery Performed Operation Date: 11/08/24 10:45 Actual Procedures p Total Knee Arthroplasty - Robot(Right) - Maryam Harper MD Physical Therapy Treatment Note M2 PT-IP Current Condition Start: 11/09/24 08:35 Freq: NEEDED Status: Discharge Protocol: Document 11/09/24 09:57 DLM (Rec: 11/09/24 11:45 DLM [id number]) Physical Therapy Current Condition Current Condition Evaluation Date 11/09/24 Treatment Diagnosis right total knee arthroplasty, impaired gait Onset Date 11/08/24 M3 PT-IP Subjective Start: 11/09/24 08:35 Freq: NEEDED Status: Discharge Protocol: Document 11/10/24 13:30 AB (Rec: 11/10/24 17:08 AB [id number]) Subjective Physical Therapy Visit Type Type Treatment Note Visit Start Time 13:30 Visit Stop Time 14:15 Number of PHARMACY INTAKE TECHNICIAN Visits 0 Physical Therapy Visit Comments Patient Comments agreeable to do PT Therapy Pain Assessment Pain When Pain Assessed At Rest Pain Present Pain Present Pain Reported Location Right Upper Leg Scale Used pain scale not stated Pain Behaviors Facial Grimacing,Guarding, Restlessness Pain Management Techniques Modification of Treatment,Re- positioning,Timing of Activity with Medications M4 PT-IP Mobility and Gait Start: 11/09/24 08:35 Freq: NEEDED Status: Discharge Protocol: Document 11/10/24 13:30 AB (Rec: 11/10/24 17:08 AB [id number]) PT-Bed Mobility Assessment Supine to Sit Supine to Sit Maximum Assistance,1 Person Assistance Sit to Supine Sit to Supine Maximum Assistance,1 Person Assistance PT-Transfer Assessment Sit to and From Stand Sit to and from Stand Minimal Assistance,Maximum Assistance,1 Person Assistance ,Use of Upper Extremities Equipment Transfer Assistive Device Gait Belt,Front Wheeled Walker Orthotic/Prosthetic Devices or Brace: Yes Transfers Transfer Destination Bed Transfer Technique ambulated Transfer Ability Level of Assist Moderate Assistance,1 Person Assistance,Use of Upper Extremities Comments Mobility Comments pt in bed. spouse in room. caregiver training conducted. educated spouse on how to assist pt with bed mobility. pt requiring max A and max cues and spouse was able to assist. pt repeated bed mobiltiy x 3 sets. informed spouse to have pt get in/out R side of bed. pt and spouse understood. pt sat on EOB SBA . pt can be impulsive and very restless. educated spouse on how to use safety belt and how to assist pt. spouse was able to put safety belt on pt and assisted pt with sit to stand. pt ambulated in room using fWW ~ 25 ft with spouse assisting min to mod A and max cues. stair climbing training: educated pt and spouse on how to do stairs. pt ambulated towards platform step using FWW min A. completed up/down step min A to mod A with spouse assisting but PT cueing spouse on how to assist. pt repeated again and with spouse cueing. pt ambulated back to her room and sat on the EOB using FWW. pt wanting to just sit on the EOB. pt and spouse without further concerns. nurse informed Gait Assessment Gait Gait Assistance Required: Minimum Assistance,Moderate Assistance,1 Person Assist Distance (Feet) 25 Able to Maintain Weight Bearing Status Yes During Gait Assistive Devices Assistive Device Gait Belt,Front Wheeled Walker Orthotic/Prosthetic Devices or Brace: No Gait Deviations General Gait Pattern Decreased Stride Length, Decreased Feet Clearance Factors Limiting Gait Function Factors Limiting Gait Function Decreased Activity Tolerance, Decreased Strength,Difficulty Following Directions,Limited Range of Motion,Pain,Poor Balance,Poor Safety Awareness Stair Climbing Assessment Devices Stair Climbing Assistive Devices Front Wheel Walker Technique/Endurance Stair Climbing Direction Ascend and Descend Stair Climbing Technique Step to Step Number of Steps Climbed 1 Stair Climbing Set # Repetitions (reps) 2 M5 PT-IP Objective Assessments Start: 11/09/24 08:35 Freq: NEEDED Status: Discharge Protocol: Document 11/09/24 09:57 [facility] (Rec: 11/09/24 11:45 [facility] [id number]) Orientation Orientation/Cognition Level of Alertness Alert Orientation Name,Age,Birthday,Month,Date, Year,Day of Week,Place, Situation Language Function Ability No Deficits Noted Safety Awareness Decreased Safety Awareness Memory Description Short Term Impaired Comments mild decrease memory, able to follow instructions Gross Range of Motion Upper Extremity ROM Assessment Within Functional Limits Lower Extremity ROM Assessment Right Impaired Impairments tolerates about 30 degrees of knee flexion with pain in supine and similar range in sitting, able to fully extend the knee to 0 with pain in supine Strength Upper Extremity Strength Assessment Within Functional Limits Lower Extremity Strength Assessment Right Impaired Hip flex 2-/5, needs assist to lift LE off bed Knee knee ext shows poor quad contraction and poor knee flexion with pain Ankle WFL Coordination Assessment Assessment Coordination Comments mild tremors Sensation Assessment Sensation Gross Sensation WNL Muscle Tone Muscle Tone WNL Yes M6 PT-IP Treatment Start: 11/09/24 08:35 Freq: NEEDED Status: Discharge Protocol: Document 11/10/24 13:30 AB (Rec: 11/10/24 17:08 AB [id number]) Physical Therapy Treatment Education Education Provided Safety M7 PT-IP Assessment and Plan Start: 11/09/24 08:35 Freq: NEEDED Status: Discharge Protocol: Document 11/10/24 13:30 AB (Rec: 11/10/24 17:08 AB [id number]) PT Summary Assessment and Plan Potential Rehabilitation Potential Good Summary Impairments Pain,ROM,Strength,Balance, Coordination,Sensation,Tone, Cognition,Bed Mobility, Transfers,Gait,Activity Tolerance Progress Towards Goals Slow Progress due to Pain,Slow Progress due to Activity Tolerance Assessment Summary caregiver training conducted and spouse was able to assist pt with mobility. pt plans to go home later today. Goals Bed Mobility Goal Independent Transfer Goal Independent,Front Wheeled Walker Gait Goal Independent,Front Wheel Walker Gait Distance 150 feet Other Goals Up/down one step with handrail and cane with CG assist Days to Meet Goals 5 Frequency of Treatment Frequency Of Treatment Twice a Day Treatment Plan Physical Therapy Treatment Plan Bed Mobility Training,Transfer Training,Gait Training, Therapeutic Exercise,Balance Retraining,Post Op Education, Discharge Planning,Hot or Cold Pack,Neuromuscular Re-ed Weight Bearing Status Weight Bearing Status Weight Bear as Tolerated Allowed Weight Bearing Amount (enter % right LE with FWW or #) (%) Recommendations To Nursing Amount of Assist Needed 1 Person Assist Discharge Recommendations PT Discharge Recommendations Home with Assistance, Outpatient PT Transportation Needs at Discharge Private Vehicle - PT assist 1P
--- NOTE | 2024-11-10 15:26 | PC.NURSE ---
Patient is A&Ox4, VSS, afebrile on RA. Initially 02 sats are low 90's on RA but while working with PT patient 02 sat's drop to upper 80's. She ambulates with steady gait. Per PT this a.m. prefer caregiver traning with this afternoon to do steps. Patient and completed caregiver training approximately 1400 today and she is cleared for discharge home. Patient does have home 02 when needed, but did not need 02 for second session with PT this afternoon. She verbalizes understanding of site care, medications, s/sx of infection,activity limitations as well as follow up post -op appointment. She is escorted via w/ch to private vehicle with at 1445 today with all of her belongings including cane and FWW.
== END 2024-11-10 14:45 | disposition home or self-care (01) | DRG 470 ==
LOC: OR 15:31 → AC 15:31
PROVIDERS: Admitting Provider Orthopaedic Surgery Foot and Ankle Surgery; PCP Student in an Organized Health Care Education/Training Program; Referring Provider Family Medicine; Visit Provider Orthopaedic Surgery Foot and Ankle Surgery
PROC: 0SRC0JZ Replacement of Right Knee Joint with Synthetic Substitute, Open Approach (ICD-10-PCS; CPT 27447; principal; 2024-11-08 10:45)
DX: M17.11 Unilateral primary osteoarthritis, right knee (principal); J44.9 Chronic obstructive pulmonary disease, unspecified; F41.9 Anxiety disorder, unspecified; I95.1 Orthostatic hypotension; F32.A Depression, unspecified; I10 Essential (primary) hypertension; E78.5 Hyperlipidemia, unspecified; Z87.891 Personal history of nicotine dependence
CPT/HCPCS: 36415; 73560; 85014; 85018; 94640; 97110; 97116; 97162; 97165; 97530; 97535; C1776; A9270; C1713; J0666; J0690; J1100; J1171; J2250; J2405; J2704; J3010

== ENCOUNTER → 2025-08-07 11:55 | Outpatient (CLI) | payer MEDICARE, OTHER, SELFPAY ==
[2024-11-08 14:39] VITALS: BMI 26.4
--- NOTE | 2025-08-07 11:58 | DI.RAD.S_ITS ---
PROCEDURE: XR CHEST 2V INDICATIONS: Back pain, cough, eval for pneumonia TECHNIQUE: 2 views of the chest were acquired. COMPARISON: [facility], , CHEST 2 VIEW, 04/30/2016, 8:02. FINDINGS: Surgical changes and devices: None. Lungs and pleura: Retrocardiac opacity. Mediastinum: Mediastinal contours are normal. Heart size is normal. Bones and chest wall: No suspicious bony abnormalities. Soft tissues appear unremarkable. Healed left posterior 6th rib fracture. IMPRESSION: Retrocardiac opacity, concerning for pneumonia. Recommend follow-up in 1-2 months with chest x-ray to ensure resolution. Dictated by: Job Palmer M.D. on 08/07/2025 at 23:34 Approved by: Job Palmer M.D. on 08/07/2025 at 23:35
== END ==
PROVIDERS: PCP Student in an Organized Health Care Education/Training Program; Referring Provider Internal Medicine Critical Care Medicine; Visit Provider Internal Medicine Critical Care Medicine
DX: R05.9 Cough, unspecified (principal)
CPT/HCPCS: 71046